=== PATIENT | female | born 1995 | race Caucasian/White ===

== ENCOUNTER 2019-12-10 14:19 | Inpatient (IN) | payer BC, SELFPAY ==
--- NOTE | ~2019-12-10 | XR_ITS ---
XR chest 1V portable INDICATION: Cough. TECHNIQUE: 2 view chest. FINDINGS: . There is mild bilateral interstitial prominence and peribronchial cuffing. There is no focal consoli dation, pleural effusion, or pneumothorax. The cardiomediastinal silhouette is normal.] IMPRESSION: 1. Findings most consistent with bronchiolitis versus an atypical or viral pneumonia. Reviewed, dictated and finalized at location B. IMPRESSION: 1. Findings most consistent with bronchiolitis versus an atypical or viral p[facility]
--- NOTE | ~2019-12-10 | US_ITS ---
EXAMINATION: US pelvic complete w TV DATE: 12/10/2019 15:57 INDICATION: Right lower quadrant abdominal pain. TECHNIQUE: Multiple transabdominal and transvaginal sonographic images of the pelvis were obtained. COMPARISON: CT abdomen and pelvis 12/10/2019 FINDINGS: TRANSABDOMINAL ULTRASOUND: The uterus measures 9.6 x 5.4 x 4.2 cm. There is trace free fluid in the pelvis. TRANSVAGINAL ULTRASOUND: The endometrial complex measures 4 mm in thickness. The right ovary measures 3.6 x 1.9 x 2.6 cm. The left ovary measures 3.7 x 2.4 x 2.1 cm. There is normal vascular flow in the ovaries. IMPRESSION: 1. No etiology for the patient's symptoms. Reviewed, dictated and finalized at location A.
--- NOTE | ~2019-12-10 | US_ITS ---
EXAMINATION: US right upper quadrant DATE: 12/12/2019 16:29 INDICATION: Right upper quadrant abdominal pain. TECHNIQUE: Multiple grayscale and Doppler ultrasound images of the abdomen were obtained. COMPARISON: CT abdomen and pelvis 12/10/2019 FINDINGS: The visualized portions of the head and body of the pancreas are normal. The liver is martita l without focal lesion. No liver surface nodularity. There is normal flow in main portal vein. The ga llbladder is normal in size. No gallstones or gallbladder wall thickening. There was no sonographic M urphy sign. The common duct is normal and measures 3 mm. IMPRESSION: 1. Normal right upper quadrant ultrasound. Reviewed, dictated and finalized at location A.
--- NOTE | ~2019-12-10 | NM_ITS ---
EXAMINATION: NM hepatobiliary w pharm DATE: 12/14/2019 17:04 INDICATION: Right upper quadrant abdominal pain. COMPARISON: CT abdomen and pelvis 12/10/2019, abdomen ultrasound 12/12/2019 TECHNIQUE: 3.23 mCi Tc-99m mebrofenin (Choletec) was administered intravenously. Scintigraphic image s of the abdomen were obtained for one hour. Then, 1.23 mcg sincalide (Kinevac) IV was administered, and imaging was continued for 30 minutes. FINDINGS: There is normal clearance of radiotracer from the blood pool. There is homogeneous tracer u ptake by the liver. Activity progresses to the bowel and gallbladder. Gallbladder ejection fraction (GBEF) was 94%. Note that most patients with gallbladder dysfunction have GBEF < 35%, which overlaps with the broad normal range of 10-90%. IMPRESSION: 1. Normal hepatobiliary scintigraphy. Reviewed, dictated and finalized at location A.
--- NOTE | ~2019-12-10 | CT_ITS ---
EXAMINATION: CT pelvis w con DATE: 12/11/2019 08:57 INDICATION: Dyspnea and right lower quadrant abdominal pain. TECHNIQUE: Computed tomography (CT) of the pelvis was performed with 100 mL Omnipaque-350 intravenous contrast. The dose-length product was 312.30 mGy-cm. COMPARISON: CT abdomen and pelvis and pelvic ultrasound dated 12/10/2019 FINDINGS: Appendix is normal. No abnormal bowel wall thickening or obstruction. 2 mm nonobstructing stone at th e visualized lower pole of the right kidney with no evident hydronephrosis. The left kidney is nonvis ualized. Bladder is decompressed. Retroverted uterus is normal. Small cystic lesions at the bilateral adnexa. On the axial images there appears to be a U-shaped cystic structure at the right adnexa whic h could represent either a collection of small ovarian cysts or hydrosalpinx with fluid-filled dilate d right fallopian tube measuring up to 9 mm in maximal diameter. There is some inflammatory stranding and small amount of free fluid in the deep pelvis. No abscess or free intraperitoneal gas. No pathol ogically enlarged pelvic or inguinal lymphadenopathy. Bones are unremarkable. IMPRESSION: 1. Mild stranding and small amount of free fluid in the deep pelvis with possible mild right hydrosal pinx. Correlate clinically for possible pelvic inflammatory disease. 2. Normal appendix. 3. Nonobstructing 2 mm right renal stone. Reviewed, dictated and finalized at location A. IMPRESSION: 1. Mild stranding and small amount of free fluid in the deep pelvis with possib le mild right hydrosalpinx. Correlate clinically for possible pelvic inflammato ry disease. 2. Normal appendix. 3. Nonobstructing 2 mm right renal stone.
--- NOTE | ~2019-12-10 | CT_ITS ---
EXAMINATION: CT abdomen pelvis w con DATE: 12/10/2019 14:58 INDICATION: Right lower quadrant abdominal pain. TECHNIQUE: Computed tomography (CT) of the abdomen and pelvis was performed with 100 mL Omnipaque 350 intravenous contrast. Automated exposure control and iterative reconstruction technique were employe d. The dose-length product was 285.37 mGy-cm. COMPARISON: None. FINDINGS: The visualized portions of the lung bases demonstrate mild atelectasis on the left. No pleu ral effusion. The heart size is normal. No pericardial effusion. There are cysts in the liver measuri ng up to 6 mm. The gallbladder, spleen, pancreas, and adrenal glands are normal. There are 3 stones i n right kidney measuring up to 2 mm. There is a 2 mm stone in left kidney. There are no dilated loops of bowel. The appendix is normal. There are no pathologically enlarged lymph nodes. There is trace p elvic ascites. The bones are unremarkable. IMPRESSION: 1. Small bilateral nonobstructing kidney stones. Reviewed, dictated and finalized at location A.
[2019-12-10 14:32] VITALS: BP 129/67; PULSE 115; RESP 24; TEMP 37.4; O2SAT 99
--- NOTE | 2019-12-10 14:42 | ED.ABDPAIN ---
HPI - Abdominal Pain General Chief Complaint: Abdominal Pain Stated Complaint: rlq pqin Time Seen by Provider: 12/10/19 14:27 Source: patient Mode of arrival: ambulatory Limitations: no limitations History of Present Illness HPI narrative: This is a 24 year old female that presents to the ER for RLQ abdominal pain since last night. Reports it has been constant and is getting progressively worse. Reports the pain is stabbing. Associated with nausea. Denies fever, vomiting, dysuria, hematuria. Related Data Home Medications Medication Instructions Recorded Confirmed No Home Medications 12/10/19 12/10/19 Allergies Allergy/AdvReac Type Severity Reaction Status Date / Time morphine Allergy Hives Verified 12/10/19 14:46 Review of Systems Review of Systems: Narrative: CONSTITUTIONAL: Denies fever GASTROINTESTINAL: Reports abdominal pain, nausea. Denies vomiting, or diarrhea. GENITOURINARY: Denies dysuria or hematuria. All systems reviewed & are unremarkable except as noted in HPI and below PMFSH Past Medical History Medical History (Updated 12/10/19 @ 18:23 by Pauline Little PA-C) History of asthma History of depression Social History Social History (Updated 12/10/19 @ 18:21 by Pauline Little PA-C) Substance use: never Exam Narrative: Exam Narrative: GENERAL: Well-appearing, well-nourished, and in no acute distress. HEAD: Normocephalic, atraumatic. EYES: EOMI. CHEST: Clear to auscultation. No respiratory distress. No wheezes rales or rhonchi HEART: Regular rate and rhythm. No murmur heard. Normal peripheral pulses. ABDOMEN: Soft, nondistended, normal active bowel sounds. Tender to palpation in the right lower quadrant, without guarding. No CVA tenderness EXTREMITIES: Normal range of motion. No edema. SKIN: Warm, dry, no rash. NEURO: No focal deficits. Alert and oriented x3. PSYCH: Normal mood and affect Course Vital Signs Vital signs: Vital Signs Temperature 99.4 F 12/10/19 14:32 Pulse Rate 115 H 12/10/19 14:32 Respiratory Rate 24 H 12/10/19 14:32 Blood Pressure 129/67 12/10/19 14:32 Pulse Oximetry 99 12/10/19 14:32 Temperature 99.4 F 12/10/19 14:32 Pulse Rate 82 12/10/19 16:08 Respiratory Rate 18 12/10/19 16:08 Blood Pressure 112/75 12/10/19 16:08 Pulse Oximetry 98 12/10/19 16:08 MDM - Abdominal Pain MDM Narrative Medical decision making narrative: Patient presents emergency department for right lower quadrant abdominal pain since last night. She is afebrile and nontoxic-appearing. Tachycardic upon arrival, this improved after pain medication and IV fluids. CBC with leukocytosis to 20.2 with left shift. Metabolic panel and lipase are without acute findings. UA without evidence of infection. Lactic acid is normal. Trichomonas was negative. Chlamydia and gonorrhea sent. Bedside test is negative. Pelvic ultrasound is without acute findings. CT scan of the abdomen and pelvis is also without acute findings. Due to ongoing abdominal pain and leukocytosis of uncertain etiology, patient will be admitted for observation. Spoke with hospitalist about patient and work-up who accepts admission. Spoke with general surgery who will consult Lab Data Attestation: I reviewed the patient's lab results. Result diagrams: 12/10/19 14:38 12/10/19 14:51 Labs: Lab Results 12/10/19 12/10/19 12/10/19 Range/Units 14:38 14:38 14:38 WBC 20.2 H (4.5-10.0) K/mm3 RBC 4.59 (4.2-5.4) M/mm3 Hgb 11.7 L (12.0-15.0) g/dL Hct 38.1 (37.0-47.0) % MCV 83.0 (80-100) fl MCH 25.5 L (26-34) pg MCHC 30.7 L (32-36) g/dl RDW 15.2 H (11.5-14.5) % Plt Count 320 (150-375) k/mm3 MPV 11.8 H (7.4-10.4) fl Immature Gran % (Auto) 0.5 (0-0.5) % Neut % (Auto) 91.0 H (45.5-73.1) % Lymph % (Auto) 4.7 L (18.3-44.2) % [place] % (Auto) 3.6 (2.6-8.5) % Eos % (Auto) 0.0 (0-4.4) % Baso %
[2019-12-10 14:47] LABS: Basophils Percent Auto 0.2 % (0.2-1.2); Hematocrit 38.1 % (37.0-47.0); Hemoglobin 11.7 g/dL (12.0-15.0); Immature Granulocyte Percent A 0.5 % (0-0.5); Lymphocytes Absolute Auto 0.96 K/mm3 (0.9-3.2); Lymphocytes Percent Auto 4.7 % (18.3-44.2); Mean Corpuscular HGB Conc 30.7 g/dl (32-36); Mean Corpuscular Hemoglobin 25.5 pg (26-34); Mean Platelet Volume 11.8 fl (7.4-10.4); Monocytes Absolute Auto 0.7 K/mm3 (0.1-0.6); Monocytes Percent Auto 3.6 % (2.6-8.5); Neutrophils Absolute Auto 18.4 K/mm3 (1.3-6.7); Platelet Count Result 320 k/mm3 (150-375); Red Blood Count 4.59 M/mm3 (4.2-5.4); Red Cell Distribution Width 15.2 % (11.5-14.5); White Blood Count 20.2 K/mm3 (4.5-10.0)
[2019-12-10 14:53] LABS: Estimated CRCL calculation 111 ml/min; Estimated Glomerular Filt Rate > 60
[2019-12-10 14:54] LABS: Add Urine Microscopic? YES; Appearance Urine Clear (Clear); Bilirubin Urine Negative (Negative); Blood Urine Negative (Negative); Color Urine Yellow (Yellow); Glucose Urine UA Negative (Negative); Ketones Urine 2+ mg/dL (Negative); Leukocyte Esterase Ur 1+ LEU/UL (Negative); Mucus Urine Rare /lpf; Nitrate Urine Negative (Negative); Protein Urine 1+ mg/dL (Negative); RBC Urine 0-2 /hpf (0-2); Specific Grav Ur 1.033 (1.001-1.035); Squamous Epithelial Cell Urine Few /hpf (Few); Urobilinogen Urine Negative mg/dL (<2.0)
[2019-12-10 14:58] LABS: Alanine Aminotransferase 19 U/L (4-35); Albumin Level 5.1 g/dL (3.5-5.1); Alkaline Phosphatase 50 U/L (38-126); Anion Gap 11 mmol/L (8-16); Aspartate Amino Transferase 36 U/L (14-36); Bilirubin,Total 0.7 mg/dL (0.2-1.3); Blood Urea Nitrogen 13 mg/dL (7-17); Calcium 9.2 mg/dL (8.4-10.2); Carbon Dioxide 25 mmol/L (22-30); Chloride 98 mmol/L (98-107); Estimated CRCL calculation 130 ml/min; Estimated Glomerular Filt Rate > 60; Glucose 99 mg/dL (65-105); Lipase 24 U/L (23-300); Potassium 3.9 mmol/L (3.4-5.0); Sodium 134 mmol/L (137-145)
[2019-12-10 14:59] LABS: Lactic Acid Reflex 1.2 mmol/L (0.7-2.1)
[2019-12-10] MEDS: ONDANSETRON INJ 4 MG/2 ML VIAL IV PUSH ×2 (15:00→23:03)
[2019-12-10] MEDS: SODIUM CHLORIDE 0.9% IV 1,000 ML 999 ML IV CONT (15:45)
[2019-12-10 16:08] VITALS: BP 112/75; PULSE 82; RESP 18; O2SAT 98
[2019-12-10] MEDS: KETOROLAC 30 MG/ML VIAL (*BKC) IV PUSH ×2 (16:43→21:31)
[2019-12-10 19:08] VITALS: BP 108/71; PULSE 85; RESP 16; TEMP 37.1; O2SAT 99
[2019-12-10 19:51] VITALS: BP 108/71; PULSE 85; RESP 20; O2SAT 99
--- NOTE | 2019-12-10 20:14 | ADMGEN ---
This patient, Leeanne Alarcon, was admitted to Medical Room 258-. Patient/family oriented to hospital policies and general routines including ID bracelet, bed and alarms, visiting hours, pain management, procedures, bathroom and other care routines, personal items, smoking policy, room service/diet, and visiting hours. Valuables list has been completed. Information on how to activate the Rapid Response Team has been discussed. Patient/Family are encouraged to report perceived risks to care and to ask questions if they do not understand what they are told or what they should do.
[2019-12-10 21:01] VITALS: BP 110/63; PULSE 91; RESP 20; TEMP 36.8; O2SAT 100; BMI 22.5
--- NOTE | 2019-12-10 22:30 | PM.IMHP ---
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 The patient describes waking up last night with severe right lower quadrant abdominal pain which did seem to radiate anywhere. Her pain is worse with any movement and slowly worsened throughout the day today. Associated symptoms include nausea but no vomiting. She denies any fevers, chills, shortness of breath, chest pain, dysuria, hematuria, or diarrhea. the patient was evaluated emergency room and found to be septic with tachycardia, tachypnea, and leukocytosis of 20,200. CT abdomen pelvis demonstrated bilateral small kidney stones but otherwise unremarkable. Transvaginal ultrasound was also unremarkable. The patient was treated with pain medications and general surgery was consulted. She denies any other symptoms. Review of Systems Review of Systems: All systems reviewed & are unremarkable except as noted in HPI and below PMFSH Past Medical History Medical History (Updated 12/10/19 @ 22:47 by Warren Wolf MD) History of asthma History of depression Surgical History Surgical History (Updated 12/10/19 @ 22:41 by Warren Wolf MD) History of oral surgery Family History Family History Other Unknown family medical history Social History Social History Smoking status: Never smoker Alcohol intake: current Drinks per week: 1 Substance use: never Substance use type: does not use Meds Home Medications and Allergies Home Medications Medication Instructions Recorded Confirmed Type No Home Medications 12/10/19 12/10/19 History Allergies Allergy/AdvReac Type Severity Reaction Status Date / Time morphine Allergy Hives Verified 12/10/19 14:46 Vital Signs Vital Signs - 24 hr 12/10/19 14:32 12/10/19 16:08 12/10/19 19:08 Temperature 37.4 C 37.1 C Pulse Rate 115 H 82 85 Respiratory Rate 24 H 18 16 Blood Pressure 129/67 112/75 108/71 Pulse Oximetry 99 98 99 12/10/19 19:51 12/10/19 21:01 Temperature 36.8 C Pulse Rate 85 91 Respiratory Rate 20 20 Blood Pressure 108/71 110/63 Pulse Oximetry 99 100 Exam Const: General: cooperative, alert, awake and ill appearing Nutritional Appearance: thin Orientation/consciousness: patient oriented x3 HENMT: Head: normal to inspection General nose exam: Normal external nose present Face and sinus: normal facial exam Mouth: Yes Normal oral and palatal mucosa present and Yes oropharynx normal Eyes: Pupils: Equal, round and reactive pupils present EOM: EOMs intact bilaterally Neck: Neck: supple and no JVD Thyroid: thyroid normal Lymphatic: lymphadenopathy not noted Resp: Effort & Inspection: normal respiratory effort Auscultation: clear to auscultation bilaterally Cardio: Rate: regular rate Rhythm: regular rhythm Heart sounds: no murmurs GI: Inspection: normal to inspection GI Palp: Yes abdominal tenderness ( exquisite right lower quadrant tenderness with mild palpation++) Auscultation: normal bowel sounds Rectal Exam: deferred Skin: General skin exam: normal color and no rashes or lesions noted Neuro: General: patient oriented x3 Cranial nerves: Yes CN's II-XII intact bilaterally and Yes Equal, round and reactive pupils present Speech: normal speech Motor exam (neuro): 5/5 motor strength present throughout Sensory Exam: normal sensation Extrem: General: normal to inspection and no edema Psych: Mental Status: mental status grossly normal Affect: normal affect H&P: Results Labs Labs: Short CBC 12/10/19 Range/Units 14:38 WBC 20.2 H (4.5-10.0) K/mm3 Hgb 11.7 L (12.0-15.0) g/dL Hct 38.
[2019-12-10] MEDS: SODIUM CHLORIDE 0.9% IV 1,000 ML 125 ML IV CONT (22:51)
[2019-12-10 23:03] LABS: Lactic Acid Reflex 0.8 mmol/L (0.7-2.1)
[2019-12-11 04:00] VITALS: BP 92/59; PULSE 91; RESP 20; TEMP 36.9; O2SAT 100
[2019-12-11 05:44] LABS: Basophils Percent Auto 0.3 % (0.2-1.2); Eosinophils Absolute Auto 0.1 K/mm3 (0-0.3); Eosinophils Percent Auto 0.8 % (0-4.4); Hematocrit 29.1 % (37.0-47.0); Hemoglobin 8.9 g/dL (12.0-15.0); Immature Granulocyte Absolute 0.06 K/mm3 (0.00-0.031); Immature Granulocyte Percent A 0.7 % (0-0.5); Lymphocytes Absolute Auto 1.01 K/mm3 (0.9-3.2); Lymphocytes Percent Auto 11.5 % (18.3-44.2); Mean Corpuscular HGB Conc 30.6 g/dl (32-36); Mean Corpuscular Hemoglobin 25.6 pg (26-34); Mean Corpuscular Volume 83.6 fl (80-100); Mean Platelet Volume 11.5 fl (7.4-10.4); Monocytes Absolute Auto 0.4 K/mm3 (0.1-0.6); Monocytes Percent Auto 4.8 % (2.6-8.5); Neutrophils Absolute Auto 7.2 K/mm3 (1.3-6.7); Neutrophils Percent Auto 81.9 % (45.5-73.1); Platelet Count Result 196 k/mm3 (150-375); Red Blood Count 3.48 M/mm3 (4.2-5.4); Red Cell Distribution Width 15.2 % (11.5-14.5); White Blood Count 8.8 K/mm3 (4.5-10.0)
[2019-12-11 06:00] LABS: Anion Gap 4 mmol/L (8-16); Blood Urea Nitrogen 11 mg/dL (7-17); Calcium 8.1 mg/dL (8.4-10.2); Carbon Dioxide 26 mmol/L (22-30); Chloride 106 mmol/L (98-107); Estimated CRCL calculation 111 ml/min; Estimated Glomerular Filt Rate > 60; Glucose 98 mg/dL (65-105); Potassium 4.4 mmol/L (3.4-5.0); Sodium 136 mmol/L (137-145)
--- NOTE | 2019-12-11 06:49 | PM.CNGS ---
Assessment and Plan Assessment and plan (1) Right lower quadrant abdominal pain: Code(s): R10.31 - Right lower quadrant pain Status: Acute Assessment and Plan: certainly suspicious for appendicitis. Will get repeat CT scan of the pelvis this morning. If evidence of appendicitis, will need laparoscopic appendectomy. Continue IV Zosyn antibiotics and NPO for now. She has p.r.n. analgesics as well. (2) Sepsis: Qualifiers: Sepsis type: sepsis due to unspecified organism Sepsis acute organ dysfunction status: without acute organ dysfunction Qualified Code(s): A41.9 - Sepsis, unspecified organism Code(s): A41.9 - Sepsis, unspecified organism Status: Acute Assessment and Plan: Much improved- white count now normal, tachypnea and tachycardia resolved. Continue IV antibiotics. 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 She had nausea but no vomiting. The pain had started before she went to bed but got much worse through the night and awakened her. It got worse through the day yesterday and she came to the ER. In the emergency room [place] [address]. She was tachycardic with a heart rate of 115 and also tachypnea with a respiratory rate of 24. She did not have any fever. She had a CT scan of the abdomen and pelvis which was negative for any acute inflammatory process. She was started on Zosyn and admitted for observation. This morning, the pain is a little more dull but is persistent. It hurts more when she moves. She still is been taking analgesics. Her white count has decreased now to the normal range -it is 8,800. She is a little anemic as well after fluid hydration and H&H is 8.9 and 29.1. Transvaginal ultrasound as well as pelvic exam in the emergency room was negative for any evidence of pelvic inflammatory disease. She is seen now in consultation regarding her persistent right lower quadrant abdominal pain. Patient denies any history of constipation. Last bowel movement was yesterday morning. Review of Systems Review of Systems: All systems reviewed & are unremarkable except as noted in HPI and below Constitutional: Constitutional: Denies chills, Reports fatigue, Denies fever(s), Denies headache(s) and Reports lethargy Cardiovascular: Cardiovascular: Denies chest pain and Denies dyspnea Respiratory: Respiratory: Denies cough and Denies dyspnea Gastrointestinal: Gastrointestinal: Reports as per HPI, Reports abdominal pain, Denies constipation, Denies diarrhea, Reports nausea and Denies vomiting Neurologic: Denies Sensory deficit (Neuro) [facility] Past Medical History Medical History History of asthma History of depression Surgical History Surgical History History of oral surgery Family History Family History Other Unknown family medical history Social History Social History Smoking status: Never smoker Alcohol intake: current Drinks per week: 1 Substance use: never Substance use type: does not use Meds Home Medications and Allergies Home Medications Medication Instructions Recorded Confirmed Type No Home Medications 12/10/19 12/10/19 History Allergies Allergy/AdvReac Type Severity Reaction Status Date / Time morphine Allergy Hives Verified 12/10/19 14:46 Vital Signs Vital Signs - 24 hr 12/10/19 14:32 12/10/19 16:08 12/10/19 19:08 Temperature 37.4 C 37.1 C Pulse Rate 115 H 82 85 Respiratory Rate
[2019-12-11] MEDS: SODIUM CHLORIDE 0.9% IV 1,000 ML 125 ML IV CONT (07:01)
[2019-12-11] MEDS: ONDANSETRON INJ 4 MG/2 ML VIAL IV PUSH (07:37)
--- NOTE | 2019-12-11 09:32 | PM.IMPN ---
Progress Note: A&P Assessment and Plan (1) Abdominal pain: Qualifiers: Abdominal location: right lower quadrant Qualified Code(s): R10.31 - Right lower quadrant pain Code(s): R10.9 - Unspecified abdominal pain Status: Acute Assessment and Plan: Patient presents with acute right lower quadrant abdominal pain, onset 12/08. General surgery consulted due to concern for acute abdomen r/o appendicitis - appreciate input. Repeat CT pelvis this AM demonstrates a normal appendix, nonobstructing 2 mm right renal stone, cystic structure at the right adnexa which could represent either a collection of ovarian cysts or hydrosalpinx with fluid-filled dilated right fallopian tube measuring up to 9 mm. Some surrounding inflammatory stranding and a small amount of free fluid in the deep pelvis. Urine bedside test in the ED was negative. She denies any abnormal vaginal discharge, odor, or pain. Her menstrual cycle normally causes her significant cramping in the first few days. Her last menstrual cycle ended a few days ago. She is still having exquisite tenderness on re-examination this afternoon. Appreciate TEST DRILLER consultation for input. Today she remains on empiric IV Zosyn. Trich negative. GC and chlamydia pending. Genital culture, urine culture, blood cultures pending. (2) Leukocytosis: Qualifiers: Leukocytosis type: unspecified Qualified Code(s): D72.829 - Elevated white blood cell count, unspecified Code(s): D72.829 - Elevated white blood cell count, unspecified Status: Acute Assessment and Plan: Resolved. WBC 20.2 on arrival, resolved to 8.8 today. Lactic acid within normal limits. Afebrile. Subjective Date/time seen: 12/11/19 09:20 Interval history: Ms. Alarcon is a pleasant 24yo F admitted for acute right lower quadrant pain onset 12/08. She reports pain is somewhat improved since being here due to pain medications but overall her pain is worse with very little movement and even with deep breaths. She gets nausea with vomiting with dilaudid but zoan has helped with that today. Tells me she was not vomiting prior to coming to the hospital. She denies any abnormal vaginal discharge, odor, vaginal pain, dysuria, or pain with sex. She reports her menstrual cycle just finished a few days ago. Normally during her periods she has pretty significant cramping, she describes this pain feels different than that and she does not normally have those cramps after her cycle is over. She denies chest pain or shortness of breath. Review of Systems Review of Systems: Narrative: Twelve systems were reviewed with pertinent positives and negatives as per HPI. Exam Narrative: Exam Narrative: General: Female resting sitting up in bed in no acute distress. HEENT: Normocephalic, EOMI, oral mucosa dry. Cardiovascular: Rate and rhythm are regular. Respiratory: Lungs clear to auscultation all cobian. Non-labored breathing. Abdomen: Soft, non-distended, bowel sounds present. Exquisite tenderness to palpation of right lower quadrant with voluntary guarding. Extremities: Peripheral pulses intact. No edema. Neuro: No focal neurological deficits. Speech is clear. Objective Data Vital Signs Vital Signs: Last Vital Signs Temp 98.4 F 12/11/19 04:00 Pulse 91 12/11/19 04:00 Resp 20 12/11/19 04:00 BP 92/59 L 12/11/19 04:00 Pulse Ox 100 12/11/19 04:00 Intake/Output Intake/Output: Intake & Output 12/08/19 12/09/19 12/10/19 12/11/19 23:59 23:59 23:59 23:59 Intake Total 1200 1150 Balance 1200 1150 Meds/Results Medications: Active Medications Generic Name Dose Route Start Last Admin Trade Name Freq PRN Reason Stop Dose Admin Hydromorphone HCl 0.5 mg 12/10/19 22:16 12/11/19 07:30 Dilaudid Inj IV PUSH 12/12/19 07:00 0.5 mg Q3H PRN Administration Pain Rated 7-10
[2019-12-11 14:00] VITALS: BP 100/56; PULSE 93; RESP 15; TEMP 37.1; O2SAT 99
[2019-12-11] MEDS: KETOROLAC 30 MG/ML VIAL (*BKC) IV PUSH (14:29)
[2019-12-11] MEDS: MAGNESIUM CITRATE 300 ML BTL 150 ML PO (16:03)
--- NOTE | 2019-12-11 16:45 | WPDCN ---
Assessment and Plan Assessment and plan (1) Right lower quadrant abdominal pain: Code(s): R10.31 - Right lower quadrant pain Status: Acute Assessment and Plan: Based on history of acute pain and normal ultrasound findings and no vaginal discharge or cervical or uterine tenderness on exam, she does not meet criteria for PID. The CT findings are nonspecific. She does appear uncomfortable but not diagnostic of PID. HPI Data of Consult Date/Time: 12/11/19 16:45 Requesting Physician: Janette Martell MD Primary Care Provider: KETT[facility] OPERATOR PHYSICIAN Consult Narrative Narrative: I was asked to consult patient to rule out pelvic inflammatory disease. Leeanne Alarcon is a 24 year old female G0 LMP 12/04. Regular. Uses condoms. No instrumentation. Presented with complaints of acute onset right lower quadrant pain starting Sat and increasing not being relieved with Tylenol. She denies any history of gonorrhea or chlmydia. She last had sex one month ago and used condoms. Denies abnormal vaginal discharge, itching or irritation. The pain is better today. It is a 4 with walking and a 7 with turning. She had an initial elevated WBC of 20 and was started on Zosyn. Recent WBC 8. She denies urinary symptoms. Her pelvic ultrasound was normal on 12/09 at her initial evaluation. CT today showed nonspecific findings in the right pelvis. GC/CHL cultures pending. Review of Systems Review of Systems: All systems reviewed & are unremarkable except as noted in HPI and below Constitutional: Constitutional: Reports no additional constitutional complaints Cardiovascular: Cardiovascular: Denies dyspnea Gastrointestinal: Gastrointestinal: Denies abdominal pain Genitourinary: Genitourinary: Reports as per HPI, Denies vaginal discharge, Denies vaginal odor and Denies vaginal pruritus Psychiatric: Psychiatric: Reports no additional psychiatric complaints Endocrine: Endocrine: Reports no additional endocrine complaints Hematologic/Lymphatic: Hematologic/Lymphatic: Reports no additional hematologic/lymphatic complaints PMFSH Past Medical History Medical History History of asthma History of depression Surgical History Surgical History History of oral surgery Family History Family History Other Unknown family medical history Social History Social History Smoking status: Never smoker Alcohol intake: current Drinks per week: 1 Substance use: never Substance use type: does not use Meds Home Medications and Allergies Home Medications Medication Instructions Recorded Confirmed Type No Home Medications 12/10/19 12/10/19 History Allergies Allergy/AdvReac Type Severity Reaction Status Date / Time morphine Allergy Hives Verified 12/10/19 14:46 Vital Signs Vital Signs - 24 hr 12/10/19 19:08 12/10/19 19:51 12/10/19 21:01 Temperature 98.8 F 98.3 F Pulse Rate 85 85 91 Respiratory Rate 16 20 20 Blood Pressure 108/71 108/71 110/63 Pulse Oximetry 99 99 100 12/11/19 04:00 12/11/19 14:00 Temperature 98.4 F 98.8 F Pulse Rate 91 93 Respiratory Rate 20 15 Blood Pressure 92/59 L 100/56 L Pulse Oximetry 100 99 Exam Const: General: healthy appearing, alert, awake and other (mild discomfort with moving) Orientation/consciousness: oriented to person, oriented to place and patient oriented x3 HENMT: Head: normal to inspection Ears: hearing grossly normal bilaterally Eyes: General: appearance normal, both eyes and all related structures Resp: Effort & Inspection: normal respiratory effort and other Auscultation: rhonchi (mild right mid and lower) Cardio: Rate: regular rate Rhythm: regular rhythm GI: Inspection: normal to inspection GI Palp: Yes abdominal tenderness (rig
[2019-12-11] MEDS: SODIUM CHLORIDE 0.9% IV 1,000 ML 100 ML IV CONT (19:20)
[2019-12-11 20:00] VITALS: PULSE 93; RESP 15; O2SAT 99
[2019-12-11] MEDS: ACETAMINOPHEN 500 MG TABLET 1000 MG PO (21:05)
[2019-12-11 22:00] VITALS: BP 99/55; PULSE 75; RESP 18; TEMP 37; O2SAT 100
[2019-12-12] MEDS: ACETAMINOPHEN 500 MG TABLET 1000 MG PO ×2 (04:26→11:19)
[2019-12-12 05:32] VITALS: BP 90/57; PULSE 77; RESP 18; TEMP 36.6; O2SAT 100
[2019-12-12 05:46] LABS: Basophils Percent Auto 0.4 % (0.2-1.2); Eosinophils Absolute Auto 0.1 K/mm3 (0-0.3); Eosinophils Percent Auto 2.5 % (0-4.4); Hematocrit 27.9 % (37.0-47.0); Hemoglobin 8.6 g/dL (12.0-15.0); Immature Granulocyte Absolute 0.02 K/mm3 (0.00-0.031); Immature Granulocyte Percent A 0.4 % (0-0.5); Lymphocytes Absolute Auto 1.23 K/mm3 (0.9-3.2); Lymphocytes Percent Auto 25.6 % (18.3-44.2); Mean Corpuscular HGB Conc 30.8 g/dl (32-36); Mean Corpuscular Hemoglobin 25.5 pg (26-34); Mean Corpuscular Volume 82.8 fl (80-100); Mean Platelet Volume 11.7 fl (7.4-10.4); Monocytes Absolute Auto 0.4 K/mm3 (0.1-0.6); Neutrophils Percent Auto 62.1 % (45.5-73.1); Platelet Count Result 217 k/mm3 (150-375); Red Blood Count 3.37 M/mm3 (4.2-5.4); Red Cell Distribution Width 15.4 % (11.5-14.5); White Blood Count 4.8 K/mm3 (4.5-10.0)
[2019-12-12 05:58] LABS: Alanine Aminotransferase 11 U/L (4-35); Alkaline Phosphatase 39 U/L (38-126); Anion Gap 3 mmol/L (8-16); Aspartate Amino Transferase 19 U/L (14-36); Bilirubin,Total 0.2 mg/dL (0.2-1.3); Blood Urea Nitrogen 8 mg/dL (7-17); Calcium 8.1 mg/dL (8.4-10.2); Carbon Dioxide 27 mmol/L (22-30); Chloride 108 mmol/L (98-107); Estimated CRCL calculation 111 ml/min; Estimated Glomerular Filt Rate > 60; Glucose 103 mg/dL (65-105); Magnesium 2.1 mg/dL (1.6-2.3); Sodium 138 mmol/L (137-145)
[2019-12-12 06:13] LABS: Beta HCG Quantitative < 2.39 mIU/ML
--- NOTE | 2019-12-12 06:57 | PM.PNGS ---
Progress Note: A&P Assessment and Plan (1) Right lower quadrant abdominal pain: Code(s): R10.31 - Right lower quadrant pain Status: Acute Assessment and Plan: a little better today but no bowel movement. Will try and bottle of Mag citrate and start on Metamucil. No plans for surgery. Will advance diet. Subjective Subjective Date/Time Seen: 12/12/19 06:57 Patient reports: pain is less ( Still having pain but not as severe as yesterday.), tolerating liquids well and no bowel movement ( Despite magnesium citrate) Review of Systems Review of Systems: All systems reviewed & are unremarkable except as noted in HPI and below Constitutional: Constitutional: Denies headache(s) Cardiovascular: Cardiovascular: Denies chest pain and Denies dyspnea Respiratory: Respiratory: Denies cough and Denies dyspnea Gastrointestinal: Gastrointestinal: Reports as per HPI, Reports abdominal pain and Reports constipation Exam Const: General: comfortable and no acute distress; No confusion Orientation/consciousness: patient oriented x3 and No confusion GI: Inspection: normal to inspection GI Palp: Yes Soft to palpation, Yes Tenderness to palpation present (GI) ( tender over cecum, palpable stool in cecum noted.), No Guarding due to palpation present (GI) and No Rebound tenderness present Auscultation: normal bowel sounds Neuro: General: patient oriented x3, no focal motor deficits and No confusion Extrem: General: no calf tenderness and no edema Psych: Affect: normal affect Insight: Good insight present (Psych) Judgement: Good judgement present (Psych) Objective Data Vital Signs Vital Signs: Vital Signs - 24 hr 12/11/19 14:00 12/11/19 20:00 12/11/19 22:00 Temperature 37.1 C 37.0 C Pulse Rate 93 93 75 Respiratory Rate 15 15 18 Blood Pressure 100/56 L 99/55 L Pulse Oximetry 99 99 100 12/12/19 05:32 Temperature 36.6 C Pulse Rate 77 Respiratory Rate 18 Blood Pressure 90/57 L Pulse Oximetry 100 Intake/Output Intake/Output: Intake & Output 12/09/19 12/10/19 12/11/19 12/12/19 23:59 23:59 23:59 23:59 Intake Total 1200 2940 340 Output Total 875 1500 Balance 1200 2065 -1160 Meds/Results Medications: Active Medications Generic Name Dose Route Start Last Admin Trade Name Freq PRN Reason Stop Dose Admin Acetaminophen 1,000 mg 12/11/19 20:36 12/12/19 04:26 Tylenol Tablet PO 1,000 mg Q6H PRN Administration Mild Pain (1-3) or Fever Hydromorphone HCl 0.5 mg 12/10/19 22:16 12/11/19 07:30 Dilaudid Inj IV PUSH 12/12/19 07:00 0.5 mg Q3H PRN Administration Pain Rated 7-10 Piperacillin/Tazobactam/Dextrose 3.375 gm in 50 mls @ 100 mls/hr 12/11/19 22:00 12/12/19 04:05 Zosyn 3.375 Gm/D5w 50ml Pm IVPB Infused Q6H RUTHY Infusion Ketorolac Tromethamine 30 mg 12/10/19 18:15 12/11/19 14:29 Toradol Inj IV PUSH 12/15/19 18:16 30 mg Q6H PRN Administration Pain Rated 4-6 Ondansetron HCl 4 mg 12/10/19 18:15 12/11/19 07:37 Zofran Inj IV PUSH 4 mg Q4H PRN Administration Nausea Radiology Results: ITS Impressions Abdomen/Pelvis CT 12/10/19 15:02 IMPRESSION: 1. Small bilateral nonobstructing kidney stones. Pelvic/Transvag US 12/10/19 16:02 IMPRESSION: 1. No etiology for the patient's symptoms. Pelvis CT 12/11/19 09:43 IMPRESSION: 1. Mild stranding and small amount of free fluid in the deep pelvis with possible mild right hydrosalpinx. Correlate clinically for possible pelvic inflammatory disease. 2. Normal appendix. 3. Nonobstructing 2 mm right renal stone. Labs Labs: Laboratory Results - last 24 hr 12/12/19 05:26 Sodium 138 Potassium 4.0 Chloride 108 H Carbon Dioxide 27 Anion Gap 3 L BUN 8 Creatinine 0.60 L Estim Creat Clear Calc 111 Estimated GFR > 60 Glucose 103 Calcium 8.1 L Magnesium 2.1 Total Bilirubin 0.2 AST 19 ALT 11 Alkaline Phosphatase 39 Total Pr
[2019-12-12 07:08] LABS: Thyroid Stimulating Hormone Reflex 0.537 uIU/mL (0.465-4.68)
[2019-12-12] MEDS: MAGNESIUM CITRATE 300 ML BTL PO (08:30)
[2019-12-12] MEDS: PSYLLIUM POWDER PACKET 1 PACKET PO (08:30)
[2019-12-12 09:45] LABS: Immature Reticulocyte Fraction 6.8 % (3.0-15.9); Reticulocyte Hemoglobin Conten 26.7 pg (28.2-35.7); Reticulocyte Percent 0.71 % (0.7-4.3); Reticulocytes Absolute 0.02 B/L (32.2-175.7)
[2019-12-12] MEDS: ONDANSETRON INJ 4 MG/2 ML VIAL IV PUSH ×2 (11:18→18:03)
[2019-12-12 11:40] LABS: Transferrin 248 mg/dL (206-381)
[2019-12-12 11:47] LABS: Iron 12 ug/dL (37-170)
[2019-12-12 11:57] LABS: Percent Iron Saturation 3 % (20-50)
[2019-12-12] MEDS: KETOROLAC 30 MG/ML VIAL (*BKC) IV PUSH (11:59)
[2019-12-12 12:00] VITALS: BP 118/65
[2019-12-12 12:36] LABS: Folic Acid 18.7 ng/mL (2.76->20)
--- NOTE | 2019-12-12 12:37 | PM.IMPN ---
Progress Note: A&P Assessment and Plan (1) Abdominal pain: Qualifiers: Abdominal location: right lower quadrant Qualified Code(s): R10.31 - Right lower quadrant pain Code(s): R10.9 - Unspecified abdominal pain Status: Acute Assessment and Plan: ----- patient initially presented with acute right lower quadrant pain 12/08 and has had multiple CTs. Surgery has seen her and does not suspect appendicitis. CT of the abdomen pelvis showed mild stranding and small amount of free fluid in the deep pelvis with possible right hydrosalpinx but u/s negative and no pelvic pain. SHAREPOINT SPECIALIST has seen her and does not think this is causing her pain. Awaiting GC/ chlamydia although it seems lss likely on history. today, her pain is in the right upper quadrant and she is positive Figueroa sign. cholelithiasis? Stephan [place]? will obtain right upper quadrant ultrasound. patient started having a rash and thought to be possibly due to Zosyn. I have changed her to Cipro and Flagyl for GI pathogens until we get a better understanding of her GI pain. If the ultrasound comes back negative, consider GI consult. Ppi has been started although is not consistent with gastritis. Genital culture, urine culture, blood cultures pending. Pt is afebrile and WBC is normal. (2) Leukocytosis: Qualifiers: Leukocytosis type: unspecified Qualified Code(s): D72.829 - Elevated white blood cell count, unspecified Code(s): D72.829 - Elevated white blood cell count, unspecified Status: Acute Assessment and Plan: ------Resolved. WBC 20.2 on arrival, resolved to4.8 today. Lactic acid within normal limits. Afebrile. Time Spent With Patient Time with patient: 25 - 35 minutes Subjective Date/time seen: 12/12/19 12:37 Interval history: Pt is a 24-year-old female here for abdominal pain. Patient states that her abdominal pain was initially in the right lower quadrant but now has moved up to the right upper quadrant and is becoming more severe. She has nausea with drinking or eating anything. She also notes that she started having a rash since she has been here and does not have any idea on what is causing it and does not have a history of a penicillin allergy. She was constipated but the Mag citrate she got earlier today has improved that. Review of Systems Review of Systems: All systems reviewed & are unremarkable except as noted in HPI and below Exam Narrative: Exam Narrative: General: Well developed well nourished patient in NAD HEENT: normocephalic Neck: supple Neuro: Alert and oriented x4 skin: Blanchable macular rash on the right arm and left arm. CV:RRR Resp:CTA Abd: Soft, non distended. Significant pain to palpation to the right upper quadrant. Positive Figueroa sign. Positive bowel sounds . Some mild discomfort in the lower quadrants but seem to be referred from the upper quadrant Extremities: No swelling, erythema, or pain to palpation. Objective Data Vital Signs Vital Signs: Vital Signs - 24 hr 12/11/19 14:00 12/11/19 20:00 12/11/19 22:00 Temperature 98.8 F 98.6 F Pulse Rate 93 93 75 Respiratory Rate 15 15 18 Blood Pressure 100/56 L 99/55 L Pulse Oximetry 99 99 100 12/12/19 05:32 Temperature 97.8 F Pulse Rate 77 Respiratory Rate 18 Blood Pressure 90/57 L Pulse Oximetry 100 Intake/Output Intake/Output: Intake & Output 12/09/19 12/10/19 12/11/19 12/12/19 23:59 23:59 23:59 23:59 Intake Total 1200 2940 1750 Output Total 875 1500 Balance 1200 2065 250 Meds/Results Medications: Active Medications Generic Name Dose Route Start Last Admin Trade Name Freq PRN Reason Stop Dose Admin Acetaminophen 1,000 mg 12/11/19 20:36 12/12/19 11:19 Tylenol Tablet PO 1,000 mg Q6H PRN Administration Mild Pain (1-3) or Fever Metronidazole 500 mg in 100 mls @ 100 mls/hr 12/12/19 12:30 Flagyl 500 Mg/Iso Soln 100 Ml IVPB Q6H RUTHY Ciproflo
[2019-12-12] MEDS: metroNIDAZOLE 500 MG/ISO 100ML 500 MG/100 ML BAG 100 MG IVPB ×2 (13:07→18:02)
[2019-12-12] MEDS: diphenhydrAMINE HCl CAP 25 MG CAPSULE PO ×2 (13:07→18:42)
[2019-12-12] MEDS: PANTOPRAZOLE 40 MG TABLET PO (13:07)
[2019-12-12] MEDS: LACTATED RINGERS 1,000 ML 100 ML IV CONT (13:07)
[2019-12-12] MEDS: LORATADINE 10 MG TABLET PO (13:44)
[2019-12-12 14:00] VITALS: BP 101/61; PULSE 59; RESP 20; TEMP 36.6; O2SAT 100
[2019-12-12] MEDS: CIPROFLOXACIN 400 MG/D5W 200ML 200 ML 200 MG IVPB (15:30)
[2019-12-12 20:00] VITALS: PULSE 59; RESP 20; O2SAT 100
[2019-12-12 22:00] VITALS: BP 95/56; PULSE 110; RESP 18; TEMP 36.4; O2SAT 93
[2019-12-13] MEDS: metroNIDAZOLE 500 MG/ISO 100ML 500 MG/100 ML BAG 100 MG IVPB ×4 (00:01→17:50)
[2019-12-13] MEDS: LACTATED RINGERS 1,000 ML 100 ML IV CONT ×2 (00:02→15:51)
[2019-12-13] MEDS: CIPROFLOXACIN 400 MG/D5W 200ML 200 ML 150 MG IVPB (02:55)
[2019-12-13] MEDS: KETOROLAC 30 MG/ML VIAL (*BKC) IV PUSH (02:58)
[2019-12-13 05:34] LABS: Hematocrit 27.2 % (37.0-47.0); Hemoglobin 8.2 g/dL (12.0-15.0); Mean Corpuscular HGB Conc 30.1 g/dl (32-36); Mean Corpuscular Hemoglobin 25.2 pg (26-34); Mean Corpuscular Volume 83.4 fl (80-100); Mean Platelet Volume 10.7 fl (7.4-10.4); Platelet Count Result 222 k/mm3 (150-375); Red Blood Count 3.26 M/mm3 (4.2-5.4); Red Cell Distribution Width 15.1 % (11.5-14.5); White Blood Count 3.7 K/mm3 (4.5-10.0)
[2019-12-13 05:44] VITALS: BP 100/58; PULSE 60; RESP 16; TEMP 36.1; O2SAT 97
[2019-12-13 05:55] LABS: Alanine Aminotransferase 11 U/L (4-35); Alkaline Phosphatase 37 U/L (38-126); Anion Gap -1 mmol/L (8-16); Aspartate Amino Transferase 18 U/L (14-36); Bilirubin,Total < 0.1 mg/dL (0.2-1.3); Blood Urea Nitrogen 6 mg/dL (7-17); Calcium 8.3 mg/dL (8.4-10.2); Carbon Dioxide 28 mmol/L (22-30); Chloride 106 mmol/L (98-107); Estimated CRCL calculation 111 ml/min; Estimated Glomerular Filt Rate > 60; Glucose 98 mg/dL (65-105); Potassium 4.4 mmol/L (3.4-5.0); Sodium 133 mmol/L (137-145)
[2019-12-13] MEDS: ONDANSETRON INJ 4 MG/2 ML VIAL IV PUSH (08:49)
[2019-12-13] MEDS: LORATADINE 10 MG TABLET PO (08:50)
[2019-12-13] MEDS: diphenhydrAMINE HCl CAP 25 MG CAPSULE PO ×2 (08:51→20:37)
[2019-12-13] MEDS: PANTOPRAZOLE 40 MG TABLET PO (08:51)
[2019-12-13] MEDS: CEFDINIR 300 MG CAPSULE PO ×2 (09:54→20:34)
[2019-12-13] MEDS: ALBUTEROL SULFATE NEB 2.5 MG/0.5 ML INH 5 MG INHALATION (11:33)
[2019-12-13 11:36] VITALS: PULSE 64; RESP 18
[2019-12-13 11:40] VITALS: PULSE 64; RESP 18
--- NOTE | 2019-12-13 13:34 | PM.PNGS ---
Progress Note: A&P Assessment and Plan (1) Right-sided abdominal pain of unknown cause: Code(s): R10.9 - Unspecified abdominal pain Status: Acute Assessment and Plan: pain now includes the right upper quadrant and right lower quadrant. May in fact be worse in the right upper quadrant. History not really suggestive of gallbladder disease and ultrasound is normal. Hearing Care Professional evaluation is negative. Two different CT scans have been negative for appendicitis or other inflammatory conditions. GI consult with Dr. Aguila is pending. Continue to follow and continue IV antibiotics. (2) Pruritus: Code(s): L29.9 - Pruritus, unspecified Status: Acute Assessment and Plan: limited to both arms. Was thought to be due to Zosyn but this is an unusual presentation for drug reaction or penicillin reaction. Patient has Benadryl and Claritin available. No rash noted by my exam. Etiology unclear. Subjective Subjective Date/Time Seen: 12/13/19 13:34 Patient reports: still having pain ( Since last night it has been more in the right upper quadrant, worse with a deep breath. Still hurts right lower quadrant too.), bowel movement ( several BMs after 2nd dose of magnesium citrate) and afebrile Review of Systems Review of Systems: All systems reviewed & are unremarkable except as noted in HPI and below Constitutional: Constitutional: Denies body ache(s), Denies chills, Denies fever(s) and Denies headache(s) Cardiovascular: Cardiovascular: Denies chest pain and Denies dyspnea Respiratory: Respiratory: Denies cough and Denies dyspnea Gastrointestinal: Gastrointestinal: Reports as per HPI, Reports abdominal pain, Denies nausea and Denies vomiting Neurologic: Denies confusion and Denies headache(s) Exam Const: General: comfortable and no acute distress; No confusion Orientation/consciousness: patient oriented x3 and No confusion GI: Inspection: normal to inspection and non-distended GI Palp: Yes Soft to palpation, Yes Tenderness to palpation present (GI) ( pretty much tender the entire right side of the abdomen now, not just RLQ), No Guarding due to palpation present (GI), No Hernia present, No Palpable mass present and No Rebound tenderness present Auscultation: normal bowel sounds Neuro: General: patient oriented x3, no focal motor deficits and No confusion Extrem: General: no calf tenderness and no edema Psych: Affect: normal affect Insight: Good insight present (Psych) Judgement: Good judgement present (Psych) Objective Data Vital Signs Vital Signs: Vital Signs - 24 hr 12/12/19 14:00 12/12/19 20:00 12/12/19 22:00 Temperature 36.6 C 36.4 C L Pulse Rate 59 L 59 L 110 H Respiratory Rate 20 20 18 Blood Pressure 101/61 95/56 L Pulse Oximetry 100 100 93 12/13/19 05:44 12/13/19 11:36 12/13/19 11:40 Temperature 36.1 C L Pulse Rate 60 64 64 Respiratory Rate 16 18 18 Blood Pressure 100/58 L Pulse Oximetry 97 Intake/Output Intake/Output: Intake & Output 12/10/19 12/11/19 12/12/19 12/13/19 23:59 23:59 23:59 23:59 Intake Total 1200 2940 3390 1290 Output Total 875 3050 Balance 1200 2065 340 1290 Meds/Results Medications: Active Medications Generic Name Dose Route Start Last Admin Trade Name Freq PRN Reason Stop Dose Admin Acetaminophen 1,000 mg 12/11/19 20:36 12/12/19 11:19 Tylenol Tablet PO 1,000 mg Q6H PRN Administration Mild Pain (1-3) or Fever Albuterol 5 mg 12/13/19 11:01 12/13/19 11:33 Albuterol Sulf Neb 2.5mg/0.5ml INHALATION 5 mg Q6HRT PRN Administration Shortness Of Breath Cefdinir 300 mg 12/13/19 09:00 12/13/19 09:54 Omnicef PO 300 mg Q12HR RUTHY Administration Diphenhydramine HCl 25 mg 12/12/19 12:37 12/13/19 08:51 Benadryl Cap PO 25 mg Q6H PRN Administration Itching/rash Hydromorphone HCl 0.5 mg 12/12/19 12:52 12/13/19 08:49 Dilaudid Inj IV PUSH 0.5 mg Q3H PRN Administration sev
--- NOTE | 2019-12-13 13:39 | PM.IMPN ---
Progress Note: A&P Assessment and Plan (1) Abdominal pain: Qualifiers: Abdominal location: right lower quadrant Qualified Code(s): R10.31 - Right lower quadrant pain Code(s): R10.9 - Unspecified abdominal pain Status: Acute Assessment and Plan: ----- patient initially presented with acute right lower quadrant pain 12/08 and has had multiple CTs. Surgery has seen her and does not suspect appendicitis. CT of the abdomen pelvis showed mild stranding and small amount of free fluid in the deep pelvis with possible right hydrosalpinx but u/s negative and no pelvic pain. [facility] SC[employer] SPECIALIST has seen her and does not think this is causing her pain. Awaiting GC/ chlamydia although it seems less likely on history. today, her pain is in the right upper quadrant and is still having significant abdominal pain. RUQ u/s negative. IBS? hypoactive gallbladder? Stephan [place]? She does have a UTI but I do not suspect this is causing her pain. Continue ceftdinir and flagyl. WBC a little low today. She saw GI who recommended an EGD tomorrow if she is still in pain. We also may consider a HIDA scan. Pt has been afebrile. (2) Leukocytosis: Qualifiers: Leukocytosis type: unspecified Qualified Code(s): D72.829 - Elevated white blood cell count, unspecified Code(s): D72.829 - Elevated white blood cell count, unspecified Status: Acute Assessment and Plan: ------Resolved. now slightly low 3.7. Will monitor. Subjective Date/time seen: 12/13/19 13:39 Interval history: Pt is a 24-year-old female here for abdominal pain. Patient states that her abdominal pain is still present and she can't even sit up in the bed without having severe pain that is mostly in the right upper quadrant now. She is having nausea with any type of movement and says eating or drinking food does not make it worse or make it better. She keeps having diarrhea since she had the Mag citrate yesterday. She has unhappy with how she was treated overnight and I talked to her about this and what we could do to make it better. No CP or SOB. Exam Narrative: Exam Narrative: General: Well developed well nourished patient in NAD HEENT: normocephalic Neck: supple Neuro: Alert and oriented x4 skin: Blanchable macular rash CV:RRR Resp:CTA Abd: Soft, non distended. Significant pain to palpation to the right upper quadrant. Positive Figueroa sign. Positive bowel sounds . Some mild discomfort in the lower quadrants but seem to be referred from the upper quadrant Extremities: No swelling, erythema, or pain to palpation. Objective Data Vital Signs Vital Signs: Vital Signs - 24 hr 12/12/19 14:00 12/12/19 20:00 12/12/19 22:00 Temperature 97.9 F 97.5 F L Pulse Rate 59 L 59 L 110 H Respiratory Rate 20 20 18 Blood Pressure 101/61 95/56 L Pulse Oximetry 100 100 93 12/13/19 05:44 12/13/19 11:36 12/13/19 11:40 Temperature 97 F L Pulse Rate 60 64 64 Respiratory Rate 16 18 18 Blood Pressure 100/58 L Pulse Oximetry 97 Intake/Output Intake/Output: Intake & Output 12/10/19 12/11/19 12/12/19 12/13/19 23:59 23:59 23:59 23:59 Intake Total 1200 2940 3390 1290 Output Total 875 3050 Balance 1200 2065 340 1290 Meds/Results Medications: Active Medications Generic Name Dose Route Start Last Admin Trade Name Freq PRN Reason Stop Dose Admin Acetaminophen 1,000 mg 12/11/19 20:36 12/12/19 11:19 Tylenol Tablet PO 1,000 mg Q6H PRN Administration Mild Pain (1-3) or Fever Albuterol 5 mg 12/13/19 11:01 12/13/19 11:33 Albuterol Sulf Neb 2.5mg/0.5ml INHALATION 5 mg Q6HRT PRN Administration Shortness Of Breath Cefdinir 300 mg 12/13/19 09:00 12/13/19 09:54 Omnicef PO 300 mg Q12HR RUTHY Administration Diphenhydramine HCl 25 mg 12/12/19 12:37 12/13/19 08:51 Benadryl Cap PO 25 mg Q6H PRN Administration Itching/rash Hydromorphone HCl 0.5 mg 12/12/19 12:52
[2019-12-13 14:00] VITALS: BP 106/65; PULSE 80; RESP 17; TEMP 36.5; O2SAT 100
[2019-12-13] MEDS: PROMETHAZINE HCL 25 MG/ML AMPUL IM (14:34)
--- NOTE | 2019-12-13 14:42 | WPDGICN ---
Assessment and Plan Assessment and plan (1) Right-sided abdominal pain of unknown cause: Code(s): R10.9 - Unspecified abdominal pain Status: Acute Assessment and Plan: work up in progress. She came in with leukocytosis, tachycardia. Ucx and cervical cx + strep, she is on antibiotics. Surgery and [facility] on board. will proceed with egd tomorrow given worsening pain in ruq with nausea. ruq ultrasound negative. (2) Leukocytosis: Qualifiers: Leukocytosis type: unspecified Qualified Code(s): D72.829 - Elevated white blood cell count, unspecified Code(s): D72.829 - Elevated white blood cell count, unspecified Status: Acute Assessment and Plan: resolved and now actually is in low side, continue to monitor (3) Nausea: Code(s): R11.0 - Nausea Status: Acute (4) Sepsis: Qualifiers: Sepsis type: sepsis due to unspecified organism Sepsis acute organ dysfunction status: without acute organ dysfunction Qualified Code(s): A41.9 - Sepsis, unspecified organism Code(s): A41.9 - Sepsis, unspecified organism Status: Acute Assessment and Plan: she met criteria of sirs on admission, blood cultures pending she is now on antibiotics continue to monitor lactic acid on admission was normal. 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 She came to the emergency room with new onset of right lower quadrant abdominal pain, also nausea but no vomiting. Pain has been persistent and severe, initially when she came in was in rlq but now has moved up to ruq. She had leukocytosis on arrival with wbc 20k, trended down and actually now is 3.7. Also hb 11.7 on arrival, most recent 8. Normal liver enzymes including bili and amylase. Initial CT scan of the abdomen and pelvis which was negative for any acute inflammatory process, repeat CT pelvis showed mild stranding and small amount of free fluid in the deep pelvis with possible mild right hydrosalpinx but pelvic ultrasound was normal. Lead Person evaluated patient and does not think that she has PID. Also surgery on board. RUQ ultrasound was normal. Cervix culture and Ucx + group B strept. Blood cultures no growth thus far. She was given zosyn but developed some rash, now she is on cipro and flagyl. Also on protonix. Never had scopes. Review of Systems Constitutional: Constitutional: Reports chills, Denies headache(s) and Denies weakness Eyes: Eyes: Denies blurry vision ENT: Reports Normal hearing present, Denies headache(s) and Denies neck pain Cardiovascular: Cardiovascular: Denies chest pain and Denies dyspnea Respiratory: Respiratory: Denies dyspnea Gastrointestinal: Gastrointestinal: Reports abdominal pain and Reports nausea Genitourinary: Genitourinary: Denies dysuria Musculoskeletal: Musculoskeletal: Denies neck pain Integumentary/Breasts: Skin/Breast: Denies dry skin Neurologic: Reports Normal hearing present, Denies headache(s) and Denies weakness Psychiatric: Psychiatric: Denies anxiety Endocrine: Endocrine: Denies change in body appearance Hematologic/Lymphatic: Hematologic/Lymphatic: Denies easy bleeding Allergic/Immunologic: Allergic/Immunologic: Denies urticaria PMFSH Past Medical History Medical History History of asthma History of depression Surgical History Surgical History History of oral surgery Family History Family History Other Un
--- NOTE | 2019-12-13 15:46 | PM.GYNPNOP ---
YOKER - A/P Assessment and plan (1) Right-sided abdominal pain of unknown cause: Code(s): R10.9 - Unspecified abdominal pain Status: Acute Assessment and Plan: Slightly improved from last exam. Cultures for GC/chl pending. Will continue to follow. I am not convinced this is PID which if it was then she was treated with Zosyn and now on Flagyl. Could consider Doxycycline 100mg q 12. (2) Right lower quadrant abdominal pain: Code(s): R10.31 - Right lower quadrant pain Status: Acute Time Spent With Patient Time: Total time spent is greater than 50% in coordination of care (as documented) at patient's floor/unit and/or counseling patient: Time with patient: less than 15 minutes YOKER- PN:Subj Post-Op Subjective Date/time seen: 12/13/19 15:46 Interval history: Pt is a 24-year-old female here for abdominal pain. She states pain is better with medication but still significant. Pain has shifted to near right upper quad. Pos loose stools after prep. Exam Const: General: cooperative and no acute distress Resp: Effort & Inspection: normal respiratory effort GI: Other: tender mild mid and lower, no rebound, no suprapubic tenderness Extrem: Other: nontender YOKER - PN: Obj Data Vital Signs Vital Signs: Vital Signs - 24 hr 12/12/19 20:00 12/12/19 22:00 12/13/19 05:44 Temperature 97.5 F L 97 F L Pulse Rate 59 L 110 H 60 Respiratory Rate 20 18 16 Blood Pressure 95/56 L 100/58 L Pulse Oximetry 100 93 97 12/13/19 11:36 12/13/19 11:40 12/13/19 14:00 Temperature 97.7 F Pulse Rate 64 64 80 Respiratory Rate 18 18 17 Blood Pressure 106/65 Pulse Oximetry 100 Intake/Output Intake/Output: Intake & Output 12/10/19 12/11/19 12/12/19 12/13/19 23:59 23:59 23:59 23:59 Intake Total 1200 2940 3390 1530 Output Total 875 3050 Balance 1200 2065 340 1530 Meds/Results Medications: Active Medications Generic Name Dose Route Start Last Admin Trade Name Freq PRN Reason Stop Dose Admin Acetaminophen 650 mg 12/13/19 18:00 Tylenol Tablet PO Q6HR RUTHY Albuterol 5 mg 12/13/19 11:01 12/13/19 11:33 Albuterol Sulf Neb 2.5mg/0.5ml INHALATION 5 mg Q6HRT PRN Administration Shortness Of Breath Cefdinir 300 mg 12/13/19 09:00 12/13/19 09:54 Omnicef PO 300 mg Q12HR RUTHY Administration Dicyclomine HCl 20 mg 12/13/19 17:00 Bentyl Capsule PO QID RUTHY Diphenhydramine HCl 25 mg 12/12/19 12:37 12/13/19 08:51 Benadryl Cap PO 25 mg Q6H PRN Administration Itching/rash Hydromorphone HCl 0.5 mg 12/12/19 12:52 12/13/19 14:38 Dilaudid Inj IV PUSH 0.5 mg Q3H PRN Administration severe pain Metronidazole 500 mg in 100 mls @ 100 mls/hr 12/12/19 12:30 12/13/19 13:23 Flagyl 500 Mg/Iso Soln 100 Ml IVPB 100 mls/hr Q6H RUTHY Administration Lactated Ringer's 1,000 mls @ 100 mls/hr 12/12/19 12:55 12/13/19 10:03 Lr - Lactated Ringers Iv IV CONT 100 mls/hr .Q10H [facility] Infusion Ketorolac Tromethamine 30 mg 12/10/19 18:15 12/13/19 02:58 Toradol Inj IV PUSH 12/15/19 18:16 30 mg Q6H PRN Administration Pain Rated 4-6 Loratadine 10 mg 12/12/19 12:50 12/13/19 08:50 Claritin PO 10 mg QAM RTUHY Administration Pantoprazole Sodium 40 mg 12/12/19 12:40 12/13/19 08:51 Protonix PO 40 mg QAM [facility] Administration Promethazine HCl 25 mg 12/13/19 13:51 12/13/19 14:34 Phenergan Inj IM 12.5 mg Q4H PRN Administration Nausea And Vomiting Psyllium Hydrophilic Mucilloid 1 packet 12/12/19 09:00 12/13/19 09:01 Metamucil Packet PO Not Given Q12HR [facility] Radiology Results: ITS Impressions Abdomen/Pelvis CT 12/10/19 15:02 IMPRESSION: 1. Small bilateral nonobstructing kidney stones. Pelvic/Transvag US 12/10/19 16:02 IMPRESSION: 1. No etiology for the patient's symptoms. Pelvis CT 12/11/19 09:43 IMPRESSION: 1. Mild stranding and small amount of free fluid
[2019-12-13] MEDS: DICYCLOMINE HCL 10 MG CAPSULE 20 MG PO ×2 (17:51→20:33)
[2019-12-13] MEDS: ACETAMINOPHEN 325 MG TABLET 650 MG PO (17:51)
[2019-12-13] MEDS: DOXYCYCLINE HYCLATE 100 MG TABLET PO (20:33)
[2019-12-13 22:00] VITALS: BP 83/49; PULSE 85; RESP 16; TEMP 36.5; O2SAT 96
[2019-12-13] MEDS: PROMETHAZINE HCL 25 MG/ML AMPUL 12.5 MG IV PUSH (22:12)
[2019-12-14] VITALS (9 sets, daily range): BP systolic 91–102; BP diastolic 53–61; PULSE 70–100; RESP 12–25; TEMP 36.7–37.2; O2SAT 97–100
[2019-12-14] MEDS: metroNIDAZOLE 500 MG/ISO 100ML 500 MG/100 ML BAG 100 MG IVPB ×2 (00:28→05:28)
[2019-12-14] MEDS: LACTATED RINGERS 1,000 ML 100 ML IV CONT ×3 (05:32→23:34)
[2019-12-14 05:43] LABS: Hematocrit 27.9 % (37.0-47.0); Hemoglobin 8.4 g/dL (12.0-15.0); Mean Corpuscular HGB Conc 30.1 g/dl (32-36); Mean Corpuscular Hemoglobin 25.7 pg (26-34); Mean Corpuscular Volume 85.3 fl (80-100); Mean Platelet Volume 11.6 fl (7.4-10.4); Platelet Count Result 262 k/mm3 (150-375); Red Blood Count 3.27 M/mm3 (4.2-5.4); Red Cell Distribution Width 15.2 % (11.5-14.5); White Blood Count 3.5 K/mm3 (4.5-10.0)
[2019-12-14 06:01] LABS: Alanine Aminotransferase 9 U/L (4-35); Albumin Level 2.9 g/dL (3.5-5.1); Alkaline Phosphatase 35 U/L (38-126); Anion Gap 2 mmol/L (8-16); Aspartate Amino Transferase 16 U/L (14-36); Bilirubin,Total < 0.1 mg/dL (0.2-1.3); Blood Urea Nitrogen 10 mg/dL (7-17); CRP 2.9 mg/dL (<1.0); Calcium 8.5 mg/dL (8.4-10.2); Carbon Dioxide 30 mmol/L (22-30); Chloride 106 mmol/L (98-107); Estimated CRCL calculation 96 ml/min; Estimated Glomerular Filt Rate > 60; Glucose 97 mg/dL (65-105); Lactate Dehydrogenase 246 U/L (313-618); Potassium 3.9 mmol/L (3.4-5.0); Sodium 138 mmol/L (137-145)
--- NOTE | 2019-12-14 07:41 | PM.PNGS ---
Progress Note: A&P Assessment and Plan (1) Right-sided abdominal pain of unknown cause: Code(s): R10.9 - Unspecified abdominal pain Status: Acute Assessment and Plan: etiology remains unclear. Dr. Aguila plans proceed with EGD today. (2) Anemia: Code(s): D64.9 - Anemia, unspecified Status: Acute Assessment and Plan: Stable (3) Pruritus: Code(s): L29.9 - Pruritus, unspecified Status: Acute Assessment and Plan: not complaining of this this morning. Subjective Subjective Date/Time Seen: 12/14/19 07:41 Patient reports: still having pain ( a little more vague but still right-sided pain persists), tolerating liquids well, bowel movement and afebrile Review of Systems Review of Systems: All systems reviewed & are unremarkable except as noted in HPI and below Constitutional: Constitutional: Denies headache(s) Cardiovascular: Cardiovascular: Denies chest pain and Denies dyspnea Respiratory: Respiratory: Denies cough and Denies dyspnea Gastrointestinal: Gastrointestinal: Reports as per HPI Neurologic: Denies confusion and Denies headache(s) Exam Const: General: comfortable and no acute distress; No confusion Orientation/consciousness: patient oriented x3 and No confusion GI: Inspection: normal to inspection and non-distended GI Palp: Yes Soft to palpation, Yes Tenderness to palpation present (GI) ( right mid abdomen and lower quadrant), No Guarding due to palpation present (GI) and No Rebound tenderness present Auscultation: normal bowel sounds Neuro: General: patient oriented x3, no focal motor deficits and No confusion Extrem: General: no calf tenderness and no edema Psych: Affect: normal affect Insight: Good insight present (Psych) Judgement: Good judgement present (Psych) Objective Data Vital Signs Vital Signs: Vital Signs - 24 hr 12/13/19 11:36 12/13/19 11:40 12/13/19 14:00 Temperature 36.5 C Pulse Rate 64 64 80 Respiratory Rate 18 18 17 Blood Pressure 106/65 Pulse Oximetry 100 12/13/19 22:00 12/14/19 05:53 Temperature 36.5 C 37.1 C Pulse Rate 85 72 Respiratory Rate 16 16 Blood Pressure 83/49 L 91/57 L Pulse Oximetry 96 97 Intake/Output Intake/Output: Intake & Output 12/11/19 12/12/19 12/13/1912/13/20 23:59 23:59 23:59 23:59 Intake Total 2940 3390 2630 1390 Output Total 875 3050 875 Balance 2065 340 1755 1390 Meds/Results Medications: Active Medications Generic Name Dose Route Start Last Admin Trade Name Freq PRN Reason Stop Dose Admin Acetaminophen 650 mg 12/13/19 18:00 12/14/19 05:39 Tylenol Tablet PO Not Given Q6HR RUTHY Albuterol 5 mg 12/13/19 11:01 12/13/19 11:33 Albuterol Sulf Neb 2.5mg/0.5ml INHALATION 5 mg Q6HRT PRN Administration Shortness Of Breath Cefdinir 300 mg 12/13/19 09:00 12/13/19 20:34 Omnicef PO 300 mg Q12HR RUTHY Administration Dicyclomine HCl 20 mg 12/13/19 17:00 12/13/19 20:33 Bentyl Capsule PO 20 mg QID RUTHY Administration Diphenhydramine HCl 25 mg 12/12/19 12:37 12/13/19 20:37 Benadryl Cap PO 25 mg Q6H PRN Administration Itching/rash Doxycycline Hyclate 100 mg 12/13/19 21:00 12/13/19 20:33 Vibramycin Tab PO 100 mg Q12HR RUTHY Administration Hydromorphone HCl 0.5 mg 12/12/19 12:52 12/13/19 20:45 Dilaudid Inj IV PUSH 0.5 mg Q3H PRN Administration severe pain Metronidazole 500 mg in 100 mls @ 100 mls/hr 12/12/19 12:30 12/14/19 07:00 Flagyl 500 Mg/Iso Soln 100 Ml IVPB Infused Q6H RUTHY Infusion Lactated Ringer's 1,000 mls @ 100 mls/hr 12/12/19 12:55 12/14/19 05:32 Lr - Lactated Ringers Iv IV CONT 100 mls/hr .Q10H RUTHY Administration Ketorolac Tromethamine 30 mg 12/10/19 18:15 12/13/19 02:58 Toradol Inj IV PUSH 12/15/19 18:16 30 mg Q6H PRN Administration Pain Rated 4-6 Loratadine 10 mg 12/12/19 12:50 12/13/19 08:50 Claritin PO 10 mg QAM
[2019-12-14] MEDS: ALBUTEROL SULFATE NEB 2.5 MG/0.5 ML INH 5 MG INHALATION (08:33)
--- NOTE | 2019-12-14 08:34 | PM.GYNPNOP ---
CULINARY DIRECTOR - A/P Assessment and plan (1) Right-sided abdominal pain of unknown cause: Code(s): R10.9 - Unspecified abdominal pain Status: Acute Assessment and Plan: Will await result of GI testing. Discussed with her that if that work up negative then would offer diagnostic laparoscopy. Awaiting results of GC/CHL but ? if it was cancelled. Consider Flexiril. Time Spent With Patient Time: Total time spent is greater than 50% in coordination of care (as documented) at patient's floor/unit and/or counseling patient: Time with patient: less than 15 minutes CULINARY DIRECTOR- PN:Subj Post-Op Subjective Date/time seen: 12/14/19 08:34 Interval history: Pt is a 24-year-old female here for abdominal pain. She states pain slightly better in right lower side but still present. Has upper pain with stretching and mid epigastric tenderness occasionally. Mild nausea. Exam Const: General: no acute distress Eyes: General: appearance normal, both eyes and all related structures Resp: Effort & Inspection: normal respiratory effort GI: Other: right lower quad tenderness less than prior exam, mild right mid tenderness, no rebound Extrem: Other: nontender CULINARY DIRECTOR - PN: Obj Data Vital Signs Vital Signs: Vital Signs - 24 hr 12/13/19 11:36 12/13/19 11:40 12/13/19 14:00 Temperature 97.7 F Pulse Rate 64 64 80 Respiratory Rate 18 18 17 Blood Pressure 106/65 Pulse Oximetry 100 12/13/19 22:00 12/14/19 05:53 Temperature 97.7 F 98.7 F Pulse Rate 85 72 Respiratory Rate 16 16 Blood Pressure 83/49 L 91/57 L Pulse Oximetry 96 97 Intake/Output Intake/Output: Intake & Output 12/11/19 12/12/19 12/13/19 12/14/19 23:59 23:59 23:59 23:59 Intake Total 2940 3390 2630 1390 Output Total 875 3050 875 Balance 2065 340 1755 1390 Meds/Results Medications: Active Medications Generic Name Dose Route Start Last Admin Trade Name Freq PRN Reason Stop Dose Admin Acetaminophen 650 mg 12/13/19 18:00 12/14/19 05:39 Tylenol Tablet PO Not Given Q6HR [facility] Albuterol 5 mg 12/13/19 11:01 12/14/19 08:33 Albuterol Sulf Neb 2.5mg/0.5ml INHALATION 5 mg Q6HRT PRN Administration Shortness Of Breath Cefdinir 300 mg 12/13/19 09:00 12/13/19 20:34 Omnicef PO 300 mg Q12HR RUTHY Administration Dicyclomine HCl 20 mg 12/13/19 17:00 12/13/19 20:33 Bentyl Capsule PO 20 mg QID RUTHY Administration Diphenhydramine HCl 25 mg 12/12/19 12:37 12/13/19 20:37 Benadryl Cap PO 25 mg Q6H PRN Administration Itching/rash Doxycycline Hyclate 100 mg 12/13/19 21:00 12/13/19 20:33 Vibramycin Tab PO 100 mg Q12HR RUTHY Administration Hydromorphone HCl 0.5 mg 12/12/19 12:52 12/13/19 20:45 Dilaudid Inj IV PUSH 0.5 mg Q3H PRN Administration severe pain Metronidazole 500 mg in 100 mls @ 100 mls/hr 12/12/19 12:30 12/14/19 07:00 Flagyl 500 Mg/Iso Soln 100 Ml IVPB Infused Q6H RUTHY Infusion Lactated Ringer's 1,000 mls @ 100 mls/hr 12/12/19 12:55 12/14/19 05:32 Lr - Lactated Ringers Iv IV CONT 100 mls/hr .Q10H R[facility]Y Administration Ketorolac Tromethamine 30 mg 12/10/19 18:15 12/13/19 02:58 Toradol Inj IV PUSH 12/15/19 18:16 30 mg Q6H PRN Administration Pain Rated 4-6 Loratadine 10 mg 12/12/19 12:50 12/13/19 08:50 Claritin PO 10 mg QAM RUTHY Administration Pantoprazole Sodium 40 mg 12/12/19 12:40 12/13/19 08:51 Protonix PO 40 mg QAM RUTHY Administration Promethazine HCl 12.5 mg 12/13/19 15:47 12/13/19 22:12 Phenergan Inj IV PUSH 12.5 mg Q4H PRN Administration Nausea And Vomiting Psyllium Hydrophilic Mucilloid 1 packet 12/12/19 09:00 12/13/19 20:34 Metamucil Packet PO Not Given Q12HR [facility] Radiology Results: ITS Impressions Abdomen/Pelvis CT 12/10/19 15:02 IMPRESSION: 1. Small bilateral nonobstructing kidney stones. Pelvic/Transvag US 12/10/19 16:02 IMPRESSION: 1. No etiology for the victoria
[2019-12-14] MEDS: PROMETHAZINE HCL 25 MG/ML AMPUL 12.5 MG IV PUSH (08:53)
--- NOTE | 2019-12-14 11:32 | PM.IMPN ---
Progress Note: A&P Assessment and Plan (1) Abdominal pain: Qualifiers: Abdominal location: right lower quadrant Qualified Code(s): R10.31 - Right lower quadrant pain Code(s): R10.9 - Unspecified abdominal pain Status: Acute Assessment and Plan: 5----- awaiting HIDA and EGD. OBGYN also mentioned laparoscopy as well if everything is negative. patient initially presented with acute right lower quadrant pain 12/08 and has had multiple CTs. Surgery has seen her and does not suspect appendicitis. CT of the abdomen pelvis showed mild stranding and small amount of free fluid in the deep pelvis with possible right hydrosalpinx but u/s negative and no pelvic pain. ACCREDITATION MANAGER has seen her and does not think this is causing her pain. Awaiting GC/ chlamydia although it seems less likely on history. RUQ u/s negative. IBS? hypoactive gallbladder? Stephan [place] [employer]? endometriosis? She does have a UTI but I do not suspect this is causing her pain. Continue ceftdinir and doxy.WBC a little low today. She saw GI who recommended an EGD tomorrow if she is still in pain. She was switched to phenergan yesterday because the Zofran was not working but it has made her loopy/ tired so i'll stop this and try Compazine. likely due to Benadryl as well (2) Leukocytosis: Qualifiers: Leukocytosis type: unspecified Qualified Code(s): D72.829 - Elevated white blood cell count, unspecified Code(s): D72.829 - Elevated white blood cell count, unspecified Status: Acute Assessment and Plan: ------Resolved. now slightly low 3.7. Will monitor. Additional Plan . Subjective Date/time seen: 12/14/19 11:32 Interval history: Patient is a 24-year-old female here for abdominal pain which has not improved. She says the new nausea medicine makes her groggy and tired. She still has nausea and is unable to eat very much. She continues to have the abdominal pain and is still having diarrhea from the Mag citrate. She says that she can't take very deep breaths because the bottoms of her lungs hurt and she has abdominal pain. She has been trying to use the spirometer but has not been using it very much. She has no shortness of breath Or chest pain with this. Exam Narrative: Exam Narrative: General: Well developed well nourished patient in NAD HEENT: normocephalic Neck: supple Neuro: Alert and oriented x4 CV:RRR Resp:CTA but unwilling to take big breaths due to pain Abd: Soft, non distended. Significant pain to palpation to the right upper quadrant. Positive Figueroa sign. Positive bowel sounds . Some mild discomfort in the lower quadrants but seem to be referred from the upper quadrant Extremities: No swelling, erythema, or pain to palpation. Objective Data Vital Signs Vital Signs: Vital Signs - 24 hr 12/13/19 11:36 12/13/19 11:40 12/13/19 14:00 Temperature 97.7 F Pulse Rate 64 64 80 Respiratory Rate 18 18 17 Blood Pressure 106/65 Pulse Oximetry 100 12/13/19 22:00 12/14/19 05:53 12/14/19 08:36 Temperature 97.7 F 98.7 F Pulse Rate 85 72 84 Respiratory Rate 16 16 18 Blood Pressure 83/49 L 91/57 L Pulse Oximetry 96 97 Intake/Output Intake/Output: Intake & Output 12/11/19 12/12/19 12/13/19 12/14/19 23:59 23:59 23:59 23:59 Intake Total 2940 3390 2630 1390 Output Total 875 3050 875 Balance 2065 340 1755 1390 Meds/Results Medications: Active Medications Generic Name Dose Route Start Last Admin Trade Name Freq PRN Reason Stop Dose Admin Acetaminophen 650 mg 12/13/19 18:00 12/14/19 05:39 Tylenol Tablet PO Not Given Q6HR [facility] Albuterol 5 mg 12/13/19 11:01 12/14/19 08:33 Albuterol Sulf Neb 2.5mg/0.5ml INHALATION 5 mg Q6HRT PRN Administration Shortness Of Breath Cefdinir 300 mg 12/13/19 09:00 12/13/19 20:34 Omnicef PO 300 mg Q12HR RUTHY Administration Dicyclomine HCl 20 mg 12/13/19 17:00 12/13/19 20:33 Bentyl Capsul
--- NOTE | 2019-12-14 11:52 | WPDANESEPPF ---
Anes - Initial Pre Proc Eval Procedure: Operation Date: 12/14/19 12:30 Proposed Procedures p Esophagogastroduodenoscopy - Clarke Jennings MD Date/Time: 12/14/19 11:52 Surgeon: Janette Martell MD Pre Op Diagnosis: Abdominal pain Patient Data Age: 24 Gender: F Height: 1.65 m Weight: 61.4 kg Last Vital Signs Temp 37.2 C 12/14/19 11:40 Pulse 92 12/14/19 11:40 Resp 18 12/14/19 11:40 BP 98/60 L 12/14/19 11:40 Pulse Ox 100 12/14/19 11:40 Allergies Allergy/AdvReac Type Severity Reaction Status Date / Time morphine Allergy Hives Verified 12/14/19 11:39 Home Medications Medication Instructions Recorded Confirmed Type albuterol sulfate [ProAir 2 inh INHALATION Q6H PRN 12/13/19 12/13/19 History RespiClick] Laboratory Tests 12/14/19 12/14/19 05:26 05:26 WBC 3.5 K/mm3 L K/mm3 (4.5-10.0) RBC 3.27 M/mm3 L M/mm3 (4.2-5.4) Hgb 8.4 g/dL L g/dL (12.0-15.0) Hct 27.9 % L % (37.0-47.0) MCV 85.3 fl fl (80-100) MCH 25.7 pg L pg (26-34) MCHC 30.1 g/dl L g/dl (32-36) RDW 15.2 % H % (11.5-14.5) Plt Count 262 k/mm3 k/mm3 (150-375) MPV 11.6 fl H fl (7.4-10.4) Sodium 138 mmol/L mmol/L (137-145) Potassium 3.9 mmol/L mmol/L (3.4-5.0) Chloride 106 mmol/L mmol/L (98-107) Carbon Dioxide 30 mmol/L mmol/L (22-30) Anion Gap 2 mmol/L L mmol/L (8-16) BUN 10 mg/dL mg/dL (7-17) Creatinine 0.70 mg/dL mg/dL (0.7-1.0) Estim Creat Clear Calc 96 ml/min ml/min Estimated GFR > 60 (59 - ) Glucose 97 mg/dL mg/dL (65-105) Calcium 8.5 mg/dL mg/dL (8.4-10.2) Total Bilirubin < 0.1 mg/dL L mg/dL (0.2-1.3) AST 16 U/L U/L (14-36) ALT 9 U/L U/L (4-35) Alkaline Phosphatase 35 U/L L U/L (38-126) Lactate Dehydrogenase 246 U/L L U/L (313-618) C-Reactive Protein 2.9 mg/dL H mg/dL (<1.0) Total Protein 5.0 g/dL L g/dL (6.3-8.2) Albumin 2.9 g/dL L g/dL (3.5-5.1) Patient hx anesthesia problems: none Family hx anesthesia problems: none PMFSH Past Medical History Medical History (Updated 12/13/19 @ 14:53 by Clarke Jennings MD) Anemia History of asthma History of depression Nausea Surgical History Surgical History History of oral surgery Family History Family History Other Unknown family medical history Social History Social History Smoking status: Never smoker Alcohol intake: current Drinks per week: 1 Substance use: never Substance use type: does not use Anes - Eval Final PreProcedure Day of Procedure 12/14/19 11:52 Patient weight: normal Heart: regular rate and rhythm Lungs: clear to auscultation and normal air movement Airway: Mallampati scale class II Neurological: alert and oriented Last oral intake: >/= 8 hours ASA classification: II Emergent: no Anesthetic plan: proceed Anesthesia type and monitoring: general GIVS and standard monitoring Informed Consent: The patient's anesthetic plan and its attendant risks and benefits were discussed with the patient/family/POA. Questions were solicited and answers provided to the satisfaction of the patient/family/POA.
[2019-12-14] MEDS: CEFDINIR 300 MG CAPSULE PO ×2 (17:05→20:43)
[2019-12-14] MEDS: DOXYCYCLINE HYCLATE 100 MG TABLET PO ×2 (17:05→20:43)
[2019-12-14] MEDS: DICYCLOMINE HCL 10 MG CAPSULE 20 MG PO ×2 (17:05→20:40)
[2019-12-14] MEDS: LORATADINE 10 MG TABLET PO (17:06)
[2019-12-14] MEDS: SUCRALFATE 1 GM TABLET PO ×2 (17:06→20:43)
[2019-12-14] MEDS: ACETAMINOPHEN 325 MG TABLET 650 MG PO ×2 (17:06→23:34)
[2019-12-14] MEDS: PROCHLORPERAZINE EDISYLATE 10 MG/2 ML VIAL IM (17:10)
[2019-12-14] MEDS: PROCHLORPERAZINE EDISYLATE 10 MG/2 ML VIAL IV PUSH (20:43)
[2019-12-14] MEDS: PANTOPRAZOLE 40 MG TABLET PO (20:44)
[2019-12-15 04:45] VITALS: BP 94/58; PULSE 99; RESP 12; TEMP 36.7; O2SAT 100
[2019-12-15] MEDS: SUCRALFATE 1 GM TABLET PO ×2 (06:07→10:53)
[2019-12-15] MEDS: ACETAMINOPHEN 325 MG TABLET 650 MG PO (06:07)
--- NOTE | 2019-12-15 07:02 | PM.PNGS ---
Progress Note: A&P Assessment and Plan (1) Right-sided abdominal pain of unknown cause: Code(s): R10.9 - Unspecified abdominal pain Status: Acute Assessment and Plan: Improved and likely due to gastric ulcer found at EGD. Will sign off. No surgical follow-up needed. I would discontinue her antibiotics. (2) Gastric ulcer: Code(s): K25.9 - Gastric ulcer, unspecified as acute or chronic, without hemorrhage or perforation Status: Acute Assessment and Plan: On Protonix and Carafate. Some improvement just overnight. Subjective Subjective Date/Time Seen: 12/15/19 07:02 Patient reports: feels better and pain is less Interval history: EGD showed gastric ulcer yesterday. Patient started on proton pump inhibitors and Carafate. Pain is less and she feels better this morning. Review of Systems Review of Systems: All systems reviewed & are unremarkable except as noted in HPI and below Constitutional: Constitutional: Denies body ache(s), Denies chills, Denies fever(s), Denies headache(s) and Reports increased appetite Cardiovascular: Cardiovascular: Denies chest pain and Denies dyspnea Respiratory: Respiratory: Denies cough and Denies dyspnea Gastrointestinal: Gastrointestinal: Reports as per HPI, Reports abdominal pain ( Improved), Denies GI cramping, Denies nausea and Denies vomiting Neurologic: Denies confusion and Denies headache(s) Exam Const: General: comfortable and no acute distress; No confusion Orientation/consciousness: patient oriented x3 and No confusion GI: Inspection: normal to inspection and non-distended GI Palp: Yes Soft to palpation, Yes Tenderness to palpation present (GI) ( much less right-sided tenderness today.), No Guarding due to palpation present (GI), No Palpable mass present and No Rebound tenderness present Auscultation: normal bowel sounds Neuro: General: patient oriented x3, no focal motor deficits and No confusion Extrem: General: no calf tenderness and no edema Psych: Affect: normal affect Insight: Good insight present (Psych) Judgement: Good judgement present (Psych) Objective Data Vital Signs Vital Signs: Vital Signs - 24 hr 12/14/19 08:36 12/14/19 11:40 12/14/19 12:15 Temperature 37.2 C Pulse Rate 84 92 97 Respiratory Rate 18 18 22 H Blood Pressure 98/60 L 94/53 L Pulse Oximetry 100 97 12/14/19 12:25 12/14/19 12:34 12/14/19 14:00 Temperature 36.7 C Pulse Rate 100 98 82 Respiratory Rate 25 H 20 16 Blood Pressure 102/59 L 93/61 L 100/61 Pulse Oximetry 100 100 100 12/14/19 20:00 12/14/19 22:00 12/15/19 04:45 Temperature 36.8 C 36.7 C Pulse Rate 70 70 99 Respiratory Rate 12 12 12 Blood Pressure 96/58 L 94/58 L Pulse Oximetry 98 98 100 Intake/Output Intake/Output: Intake & Output 12/12/19 12/13/19 12/14/19 12/15/19 23:59 23:59 23:59 23:59 Intake Total 3390 2630 2490 150 Output Total 3050 875 Balance 340 1755 2490 150 Meds/Results Medications: Active Medications Generic Name Dose Route Start Last Admin Trade Name Freq PRN Reason Stop Dose Admin Acetaminophen 650 mg 12/13/19 18:00 12/15/19 06:07 Tylenol Tablet PO 650 mg Q6HR [facility]UTHY Administration Albuterol 5 mg 12/13/19 11:01 12/14/19 08:33 Albuterol Sulf Neb 2.5mg/0.5ml INHALATION 5 mg Q6HRT PRN Administration Shortness Of Breath Cefdinir 300 mg 12/13/19 09:00 12/14/19 20:43 Omnicef PO 300 mg Q12HR [facility]Y Administration Dicyclomine HCl 20 mg 12/13/19 17:00 12/14/19 20:40 Bentyl Capsule PO 20 mg QID R[facility]Y Administration Diphenhydramine HCl 25 mg 12/12/19 12:37 12/13/19 20:37 Benadryl Cap PO 25 mg Q6H PRN Administration Itching/rash Doxycycline Hyclate 100 mg 12/13/19 21:00 12/14/19 20:43 Vibramycin Tab PO 100 mg Q12HR [facility] Administration Hydromorphone HCl 0.5 mg 12/12/19 12:52 12/14/19 17:07 Dilaudid Inj IV PUSH 0.5 mg Q3H PRN Administration severe pain
[2019-12-15 07:46] LABS: Hematocrit 30.7 % (37.0-47.0); Hemoglobin 9.4 g/dL (12.0-15.0); Mean Corpuscular HGB Conc 30.6 g/dl (32-36); Mean Corpuscular Hemoglobin 25.6 pg (26-34); Mean Corpuscular Volume 83.7 fl (80-100); Mean Platelet Volume 11.5 fl (7.4-10.4); Platelet Count Result 269 k/mm3 (150-375); Red Blood Count 3.67 M/mm3 (4.2-5.4); Red Cell Distribution Width 15.2 % (11.5-14.5)
[2019-12-15 07:58] LABS: FSH 4.2 mIU/mL (***); LH 2.9 mIU/mL (***)
[2019-12-15 08:01] LABS: Anion Gap 3 mmol/L (8-16); Blood Urea Nitrogen 5 mg/dL (7-17); Calcium 8.9 mg/dL (8.4-10.2); Carbon Dioxide 30 mmol/L (22-30); Chloride 103 mmol/L (98-107); Estimated CRCL calculation 111 ml/min; Estimated Glomerular Filt Rate > 60; Glucose 97 mg/dL (65-105); Potassium 4.4 mmol/L (3.4-5.0); Sodium 136 mmol/L (137-145)
[2019-12-15] MEDS: LACTATED RINGERS 1,000 ML 100 ML IV CONT (08:51)
[2019-12-15] MEDS: DICYCLOMINE HCL 10 MG CAPSULE 20 MG PO (08:52)
[2019-12-15] MEDS: LORATADINE 10 MG TABLET PO (08:52)
[2019-12-15] MEDS: DOXYCYCLINE HYCLATE 100 MG TABLET PO (08:52)
[2019-12-15] MEDS: PANTOPRAZOLE 40 MG TABLET PO (08:53)
--- NOTE | 2019-12-15 08:57 | WPDGIPROGNO ---
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 She would like to advance diet and if possible go home Review of Systems Review of Systems: All systems reviewed & are unremarkable except as noted in HPI and below Exam Const: General: comfortable and no acute distress HENMT: General nose exam: Normal nares present Eyes: General: appearance normal, both eyes and all related structures Neck: Neck: no JVD Resp: Auscultation: clear to auscultation bilaterally Cardio: Rate: regular rate Rhythm: regular rhythm GI: Inspection: non-distended GI Palp: Yes Soft to palpation, No Firmness to palpation present (GI) and No Guarding due to palpation present (GI) Auscultation: normal bowel sounds Skin: General skin exam: normal color Neuro: General: gait normal Speech: normal speech Extrem: General: normal to inspection Psych: Mental Status: mental status grossly normal Objective Data Vital Signs Vital Signs: Vital Signs - 24 hr 12/14/19 11:40 12/14/19 12:15 12/14/19 12:25 Temperature 98.9 F Pulse Rate 92 97 100 Respiratory Rate 18 22 H 25 H Blood Pressure 98/60 L 94/53 L 102/59 L Pulse Oximetry 100 97 100 12/14/19 12:34 12/14/19 14:00 12/14/19 20:00 Temperature 98.0 F Pulse Rate 98 82 70 Respiratory Rate 20 16 12 Blood Pressure 93/61 L 100/61 Pulse Oximetry 100 100 98 12/14/19 22:00 12/15/19 04:45 Temperature 98.2 F 98.0 F Pulse Rate 70 99 Respiratory Rate 12 12 Blood Pressure 96/58 L 94/58 L Pulse Oximetry 98 100 Intake/Output Intake/Output: Intake & Output 12/12/19 12/13/19 12/14/19 12/15/19 23:59 23:59 23:59 23:59 Intake Total 3390 2630 2490 1750 Output Total 3050 875 Balance 340 1755 2490 1750 Meds/Results Medications: Active Medications Generic Name Dose Route Start Last Admin Trade Name Freq PRN Reason Stop Dose Admin Acetaminophen 650 mg 12/13/19 18:00 12/15/19 06:07 Tylenol Tablet PO 650 mg Q6HR RUTHY Administration Albuterol 5 mg 12/13/19 11:01 12/14/19 08:33 Albuterol Sulf Neb 2.5mg/0.5ml INHALATION 5 mg Q6HRT PRN Administration Shortness Of Breath Cefdinir 300 mg 12/13/19 09:00 12/14/19 20:43 Omnicef PO 300 mg Q12HR RUTHY Administration Dicyclomine HCl 20 mg 12/13/19 17:00 12/15/19 08:52 Bentyl Capsule PO 20 mg QID RUTHY Administration Diphenhydramine HCl 25 mg 12/12/19 12:37 12/13/19 20:37 Benadryl Cap PO 25 mg Q6H PRN Administration Itching/rash Doxycycline Hyclate 100 mg 12/13/19 21:00 12/15/19 08:52 Vibramycin Tab PO 100 mg Q12HR RUTHY Administration Hydromorphone HCl 0.5 mg 12/12/19 12:52 12/14/19 17:07 Dilaudid Inj IV PUSH 0.5 mg Q3H PRN Administration severe pain Lactated Ringer's 1,000 mls @ 100 mls/hr 12/12/19 12:55 12/15/19 08:51 Lr - Lactated Ringers Iv IV CONT 100 mls/hr .Q10H RUTHY Administ
--- NOTE | 2019-12-15 09:10 | PM.GYNPNOP ---
MANAGER PRESENTATION - A/P Assessment and plan (1) Right-sided abdominal pain of unknown cause: Code(s): R10.9 - Unspecified abdominal pain Status: Acute Assessment and Plan: Patient without pain. Nothing further from fisher trammel net. Cervical culture pending from ED. Urine + ecolo. Blood cultures no growth. Final pending. Recommend she make appointment with me to evaluate her chronic fisher trammel net issue of dymenorrhea. Will sign off. Postoperative Procedures: Procedures Operation Date: 12/14/19 12:30 Actual Procedures Side Surgeon p Esophagogastroduodenoscopy WITH H. PYLORI AND BIOPSY GASTRIC ULCER Clarke Jennings MD Time Spent With Patient Time: Total time spent is greater than 50% in coordination of care (as documented) at patient's floor/unit and/or counseling patient: Time with patient: less than 15 minutes MANAGER PRESENTATION- PN:Subj Post-Op Subjective Date/time seen: 12/15/19 09:10 Interval history: She states she feels better. Denies abdominal pain. Positive appetite. Exam Const: General: cooperative, comfortable and no acute distress Resp: Effort & Inspection: normal respiratory effort GI: Inspection: normal to inspection Other: soft nontender Extrem: Other: nontender MANAGER PRESENTATION - PN: Obj Data Vital Signs Vital Signs: Vital Signs - 24 hr 12/14/19 11:40 12/14/19 12:15 12/14/19 12:25 Temperature 98.9 F Pulse Rate 92 97 100 Respiratory Rate 18 22 H 25 H Blood Pressure 98/60 L 94/53 L 102/59 L Pulse Oximetry 100 97 100 12/14/19 12:34 12/14/19 14:00 12/14/19 20:00 Temperature 98.0 F Pulse Rate 98 82 70 Respiratory Rate 20 16 12 Blood Pressure 93/61 L 100/61 Pulse Oximetry 100 100 98 12/14/19 22:00 12/15/19 04:45 Temperature 98.2 F 98.0 F Pulse Rate 70 99 Respiratory Rate 12 12 Blood Pressure 96/58 L 94/58 L Pulse Oximetry 98 100 Intake/Output Intake/Output: Intake & Output 12/12/19 12/13/19 12/14/19 12/15/19 23:59 23:59 23:59 23:59 Intake Total 3390 2630 2490 1750 Output Total 3050 875 Balance 340 1755 2490 1750 Meds/Results Medications: Active Medications Generic Name Dose Route Start Last Admin Trade Name Freq PRN Reason Stop Dose Admin Acetaminophen 650 mg 12/13/19 18:00 12/15/19 06:07 Tylenol Tablet PO 650 mg Q6HR RUTHY Administration Albuterol 5 mg 12/13/19 11:01 12/14/19 08:33 Albuterol Sulf Neb 2.5mg/0.5ml INHALATION 5 mg Q6HRT PRN Administration Shortness Of Breath Cefdinir 300 mg 12/13/19 09:00 12/14/19 20:43 Omnicef PO 300 mg Q12HR RUTHY Administration Dicyclomine HCl 20 mg 12/13/19 17:00 12/15/19 08:52 Bentyl Capsule PO 20 mg QID RUTHY Administration Diphenhydramine HCl 25 mg 12/12/19 12:37 12/13/19 20:37 Benadryl Cap PO 25 mg Q6H PRN Administration Itching/rash Doxycycline Hyclate 100 mg 12/13/19 21:00 12/15/19 08:52 Vibramycin Tab PO 100 mg Q12HR RUTHY Administration Hydromorphone HCl 0.5 mg 12/12/19 12:52 12/14/19 17:07 Dilaudid Inj IV PUSH 0.5 mg Q3H PRN Administration severe pain Lactated Ringer's 1,000 mls @ 100 mls/hr 12/12/19 12:55 12/15/19 08:51 Lr - Lactated Ringers Iv IV CONT 100 mls/hr .Q10H RUTHY Administration Loratadine 10 mg 12/12/19 12:50 12/15/19 08:52 Claritin PO 10 mg QAM RUTHY Administration Pantoprazole Sodium 40 mg 12/14/19 21:00 12/15/19 08:53 Protonix PO 40 mg Q12HR RUTHY Administration Prochlorperazine Edisylate 10 mg 12/14/19 19:01 12/14/19 20:43 Compazine IV PUSH 10 mg Q6H PRN Administration Nausea And Vomiting Psyllium Hydrophilic Mucilloid 1 packet 12/15/19 09:00 12/15/19 08:55 Metamucil Packet PO Not Given QAM RUTHY Sucralfate 1 gm 12/14/19 16:30 12/15/19 06:07 Carafate PO 1 gm ACHS RUTHY Administration Radiology Results: ITS Impressions Abdomen/Pelvis CT 12/10/19 15:02 IMPRESSION: 1. Small bilateral nonobstructing kidney stones. Pelvic/Transvag US 12/10/19 16:0
--- NOTE | 2019-12-15 09:25 | PC.NURSE ---
Called and left a message with Pharmacy in regards to missing this patients 0900 Cefdinir.
--- NOTE | 2019-12-15 09:34 | PM.DS ---
DS: Admitting Diagnosis Admitting Diagnosis Admitting Diagnosis: Abdominal pain DS: Discharge Diagnosis Discharge Diagnosis (1) Gastric ulcer: Code(s): K25.9 - Gastric ulcer, unspecified as acute or chronic, without hemorrhage or perforation Status: Acute Assessment and Plan: -----patient was found to have to gastric ulcers on EGD and started on Protonix b.i.d. and Carafate. She improved with this treatment and is going to follow-up with GI. She was told to avoid NSAIDs. (2) Abdominal pain: Qualifiers: Abdominal location: right lower quadrant Qualified Code(s): R10.31 - Right lower quadrant pain Code(s): R10.9 - Unspecified abdominal pain Status: Acute (3) Leukocytosis: Qualifiers: Leukocytosis type: unspecified Qualified Code(s): D72.829 - Elevated white blood cell count, unspecified Code(s): D72.829 - Elevated white blood cell count, unspecified Status: Acute Assessment and Plan: ------originally the patient's white blood cell count was 20.2 and was actually 3.0 at discharge. I suspect her hemoglobin is low from heavy periods since she says she goes through super tampons every few hours. She could have also had intermittent bleeding from ulcer as well. Continue iron and PPI therapy. Her white blood cell count was low, could be due to acute pathology. X-ray shows possible pneumonia, could be viral? No COVID suspected at this time. Follow-up with primary care physician (4) Anemia: Code(s): D64.9 - Anemia, unspecified Status: Acute Assessment and Plan: -----see above (5) Abnormal chest x-ray: Code(s): R93.89 - Abnormal findings on diagnostic imaging of other specified body structures Status: Acute Assessment and Plan: -----patient has known asthma but had an abnormal chest x-ray reading Findings most consistent with bronchiolitis versus an atypical or viral pneumonia. . She will finish off a course of doxycycline and I have asked her to get a repeat chest x-ray. Her primary care physician is in [place]. DS: Summary Hospital Course Reason for hospitalization: Gastric ulcer Hospital Course: Patient is a 24-year-old female who presented emergency room for severe abdominal pain initially in the right lower quadrant which went up into the right upper quadrant. Initial white blood cell count [id number]. Afebrile. Showed a small bilateral nonobstructing kidney stones. Vaginal ultrasound normal. Showed mild stranding and small amount of free fluid in the deep pelvis with possible mild right hydrosalpinx. No PID suspected no cervical pain. She did have gonorrhea and chlamydia testing but I am unsure if this was ever sent out. OBGYN was consulted and recommended completing doxycycline and following up in the office. She continued to have abdominal pain and nausea and had extensive workup. She had a right upper quadrant ultrasound which was normal as well as a HIDA scan. GI was consulted and did an EGD which showed to gastric ulcers. She was started on PPI therapy as well as Carafate and improved greatly. The day of discharge she was walking around the room and able to tolerate a diet. Please see above details for further information. Patient was educated about the worrisome signs and symptoms come back to emergency room for was discharged stable condition. She is going to follow-up with her primary care physician to get a repeat chest x-ray. Status at Discharge Functional status at discharge: independent ambulation Overall status at discharge: patient is progressing back to baseline Time Spent with Patient Time attestation: Total time spent providing and/or coordinating discharge services:38 min Time spent: Greater than 30 minutes Exam Narrative: Exam Narrative: General: Well developed well nourished patient in NAD HEENT: normocephalic Neck: supple Neuro: Alert and oriented x4 CV:RRR Resp:CT
[2019-12-15] MEDS: CEFDINIR 300 MG CAPSULE PO (10:10)
--- NOTE | 2019-12-15 13:05 | WPDANESPN ---
Anes - Prog Note Post-Op Date/Time: 12/15/19 13:05 Cardiovascular status: normal Respiratory status: normal Airway patency: baseline Mental status: baseline Post-Op hydration status: normal Vital Signs: Last Vital Signs Temp 36.7 C 12/15/19 04:45 Pulse 99 12/15/19 04:45 Resp 12 12/15/19 04:45 BP 94/58 L 12/15/19 04:45 Pulse Ox 100 12/15/19 04:45 Pain Score (VAS): 0/10. Patient sitting up in bed at time of assessment, appeared comfortable at time of assessment. No additional concerns or issues addressed by patient at time of assessment. I/O: Intake & Output 12/14/19 12/15/19 12/15/19 23:59 07:59 15:59 Intake Total 0 150 1600 Balance 0 150 1600 Laboratory Tests 12/15/19 07:39 12/15/19 07:39 12/12/19 12/15/19 12/15/19 05:26 07:39 07:39 WBC 3.0 L RBC 3.67 L Hgb 9.4 L Hct 30.7 L MCV 83.7 MCH 25.6 L MCHC 30.6 L RDW 15.2 H Plt Count 269 MPV 11.5 H Sodium 136 L Potassium 4.4 Chloride 103 Carbon Dioxide 30 Anion Gap 3 L BUN 5 L D Creatinine 0.60 L Estim Creat Clear Calc 111 Estimated GFR > 60 Glucose 97 Calcium 8.9 FSH 4.2 Luteinizing Hormone 2.9 Post-procedural complaints: none Patient Feedback: Patient satisfied with anesthetic care.
--- NOTE | 2019-12-19 13:39 | PC.NURSE ---
Blood cx are negative PTH pathology- gastric ulcer
== END 2019-12-15 11:44 | disposition home or self-care (01) | DRG 383 ==
LOC: ANHED 18:23 → ANH2MED 19:19
PROVIDERS: Family Medicine; Internal Medicine Gastroenterology; Physician Assistant; Admitting Provider Family Medicine; Emergency Provider Emergency Medicine; Visit Provider Internal Medicine
PROC: 0DJ08ZZ Inspection of Upper Intestinal Tract, Via Natural or Artificial Opening Endoscopic (ICD-10-PCS; CPT 43235; principal; 2019-12-14 12:30)
DX: K25.3 Acute gastric ulcer without hemorrhage or perforation (principal); J18.9 Pneumonia, unspecified organism; J21.9 Acute bronchiolitis, unspecified; N39.0 Urinary tract infection, site not specified; B96.20 Unspecified Escherichia coli [E. coli] as the cause of diseases classified elsewhere; Z20.828 Contact with and (suspected) exposure to other viral communicable diseases; D72.829 Elevated white blood cell count, unspecified; R10.9 Unspecified abdominal pain; N94.6 Dysmenorrhea, unspecified; N70.11 Chronic salpingitis; D64.9 Anemia, unspecified; J45.909 Unspecified asthma, uncomplicated; F32.9 Major depressive disorder, single episode, unspecified; N20.0 Calculus of kidney; L29.9 Pruritus, unspecified
CPT/HCPCS: 36415; 71045; 72193; 74177; 76705; 76830; 76856; 78227; 80048; 80053; 80076; 81001; 81025; 82607; 82728; 82746; 83001; 83002; 83540; 83550; 83605; 83615; 83690; 83735; 84443; 84466; 84702; 85025; 85027; 85046; 86140; 87040; 87070; 87077; 87081; 87086; 87088; 87186; 87491; 87591; 87808; 88305; 88342; 94640; 96361; 96365; 96366; 96367; 96375; 96376; 99285; A9270; A9537; G0378; J0131; J0744; J0780; J1170; J1885; J2405; J2543; J2550; J2704; J2805; J7030; J7120; Q9967

== ENCOUNTER 2021-07-30 13:17 | Emergency (ER) | payer BC, SELFPAY ==
[2021-07-30 13:27] VITALS: BP 109/69; PULSE 86; RESP 24; TEMP 37; O2SAT 100
--- NOTE | 2021-07-30 14:20 | ED.EYEPROB ---
HPI - Eye Problem General Chief complaint: Eye Problems Stated complaint: Eye Problem Time Seen by Provider: 07/30/21 14:20 Source: patient, RN notes reviewed and old records reviewed Mode of arrival: ambulatory Limitations: no limitations History of Present Illness HPI Narrative: 25-year-old female who presents to [facility] with complaints of right eye pain and feeling of foreign body in eye. Patient states she took her contacts out at 3 AM while she was at work at 4 AM she noticed pain to the right eye with increased watering and feeling like something in her eye, she thought maybe it was an eyelash, pain and photophobia and excessive watering have continued Visual acuity showing right eye 20/50 left eye 20/40 with no corrective lenses. MD chief complaint: eye redness and foreign body Onset (ago): hour(s) (Started at 4 AM) Duration: constant Location: right eye Eye Symptoms: redness and foreign body sensation Mechanism: none Severity scale (1-10): 7 If Pain, Quality: sharp and burning Associated symptoms: none Treatments Prior to Arrival: none Related Data Home Medications Medication Instructions Recorded Confirmed ProAir RespiClick 2 inh INHALATION Q6H PRN 12/13/19 12/13/19 dextroamphetamine-amphetamine 20 mg PO DAILY 07/30/21 07/30/21 gabapentin 300 mg PO DAILY 07/30/21 07/30/21 methotrexate sodium (PF) 25 mg IM WEEKLY 07/30/21 07/30/21 ondansetron 4 mg PO Q4-8H PRN 07/30/21 07/30/21 Allergies Allergy/AdvReac Type Severity Reaction Status Date / Time morphine Allergy Hives Verified 12/14/19 11:39 Review of Systems Review of Systems: CONSTITUTIONAL: Denies fever, chills, or sweats. EYES: Denies visual changes, redness, or discharge.photophobia, watering of eye, and pain of right eye,difficult to open eye ENT: Some clear rhinorrhea,no congestion, sore throat, or otalgia. CARDIOVASCULAR: Denies chest pain, palpitations, or edema. RESPIRATORY: Denies cough or dyspnea. GASTROINTESTINAL: Denies abdominal pain, nausea, vomiting, or diarrhea. GENITOURINARY: Denies dysuria or hematuria. SKIN: Denies rash or itching. MUSCULOSKELETAL: Denies back pain, joint pain, or myalgia. NEUROLOGIC: Denies headache, numbness, or weakness. PSYCHIATRIC: Denies anxiety or depression. All systems reviewed & are unremarkable except as noted in HPI and below PMFSH Past Medical History Medical History Anemia History of asthma History of depression Nausea Surgical History Surgical History History of oral surgery Family History Family History Other Unknown family medical history Social History Social History Smoking status: Never smoker Alcohol intake: current Drinks per week: 1 Substance use: never Substance use type: does not use Comments At time of signature, agree with nursing past medical, surgical, social and family history. There is no relevant family history pertinent to the presenting complaint Exam Narrative: GENERAL: Well-appearing, well-nourished, and in no acute distress. HEAD: Normocephalic, atraumatic. EYES: PERRLA and EOMI.right eye sclera red with excessive watering and pain with foreign body feeling in right eye. ENT: Nares clear, clear rhinorrhea no epistaxis. Mucous membranes moist.TM's normal with good light reflex, throat pink with no lesions or exudates or tonsil swelling. NECK: Supple.no lymphadenopathy CHEST: Clear to auscultation. No respiratory distress.No cough or ongestion noted SAO2 100% on room air. HEART: Regular rate and rhythm. No murmur heard. Normal peripheral pulses. ABDOMEN: Soft, nontender, nondistended, normal active bowel sounds. EXTREMITIES: Normal range of motion. No edema. SKIN: Warm, dry, no rash. NEURO: No focal deficits. Alert and oriented x3. Cour
== END 2021-07-30 14:50 | disposition home or self-care (01) ==
PROVIDERS: Emergency Provider Registered Nurse
DX: S05.01XA Injury of conjunctiva and corneal abrasion without foreign body, right eye, initial encounter (principal); X58.XXXA Exposure to other specified factors, initial encounter
CPT/HCPCS: 99213; A9270; G0463